=== PATIENT | male | born 1945 | race Caucasian/White ===

== ENCOUNTER → 2023-10-03 12:31 | Outpatient (REF) | payer MEDICARE, SELFPAY | LOC: RAD 12:31 | PROVIDERS: ATTENDING PHYSICIAN Surgery Vascular Surgery; FAMILY PHYSICIAN Internal Medicine | DX: I73.9 Peripheral vascular disease, unspecified (principal); I71.40 Abdominal aortic aneurysm, without rupture, unspecified | CPT/HCPCS: 76770; 93922; 93925 ==

== ENCOUNTER → 2023-12-12 12:56 | Outpatient (REF) | payer MEDICARE, SELFPAY ==
[2023-12-12 14:34] LABS: Glycohemoglobin (HgbA1c) 8.4 % (4.0-5.6)
[2023-12-12 14:43] LABS: ALT (SGPT) 20 U/L (0-50); AST (SGOT) 25 U/L (17-59); Albumin 4.6 g/dl (3.5-5.0); Alkaline Phosphatase 75 U/L (38-126); Blood Urea Nitrogen 19 mg/dl (9-20); Calcium 9.4 mg/dl (8.4-10.2); Carbon Dioxide 23 mmol/L (22-30); Chloride 100 mmol/L (98-107); Glucose 153 mg/dl (70-99); HDL Cholesterol 44 mg/dl; LDL Cholesterol, Calculated 69 mg/dl; Potassium 4.7 mmol/L (3.5-5.1); Sodium 137 mmol/L (135-145); Total Bilirubin 0.8 mg/dl (0.2-1.3); Total Cholesterol 141 mg/dl (50-199); Total Protein 7.5 g/dl (6.3-8.2); Triglyceride 144 mg/dl (10-149); Very Low Density Lipoprotein 28 mg/dl (0-30); eGFR 40.25
[2023-12-12 15:03] LABS: TSH 8.58 uIU/ml (0.47-4.68)
== END ==
LOC: REG 12:56
PROVIDERS: ATTENDING PHYSICIAN Nuclear Medicine Nuclear Cardiology; FAMILY PHYSICIAN Internal Medicine
DX: I48.0 Paroxysmal atrial fibrillation (principal); I25.5 Ischemic cardiomyopathy; Z95.1 Presence of aortocoronary bypass graft; I25.10 Atherosclerotic heart disease of native coronary artery without angina pectoris; I10 Essential (primary) hypertension; E03.9 Hypothyroidism, unspecified; E78.5 Hyperlipidemia, unspecified; R53.83 Other fatigue; E11.9 Type 2 diabetes mellitus without complications
CPT/HCPCS: 36415; 80053; 80061; 83036; 84443

== ENCOUNTER → 2024-02-06 15:40 | Outpatient (REF) | payer MEDICARE, SELFPAY ==
--- NOTE | 2024-02-06 17:32 | CARDSERVDEF ---
Echocardiogram with Definity completed after protocol screening completed. Allergies verified.
Patent IV site: ___RH__
IV site flushed with 0.9% NaCl pre and post administration.
Diluted bolus method utilized to enhance visualization of ventricular mckeon.
Total volume given: __2__ mL
Patient tolerated all procedures well without complications.
== END ==
LOC: RCS 15:40
PROVIDERS: ATTENDING PHYSICIAN Nuclear Medicine Nuclear Cardiology; FAMILY PHYSICIAN Internal Medicine
DX: I25.5 Ischemic cardiomyopathy (principal); Z95.1 Presence of aortocoronary bypass graft; Z79.899 Other long term (current) drug therapy; R06.09 Other forms of dyspnea
CPT/HCPCS: 71046; 93306; Q9957

== ENCOUNTER → 2024-06-11 13:07 | Outpatient (REF) | payer MEDICARE, SELFPAY ==
[2024-06-11 14:51] LABS: % Basophils 0.6 % (0-2); % Eosinophils 1.3 % (0-6); % Immature Granulocytes 0.4 % (0-0.5); % Lymphocytes 6.7 % (20.5-51.1); Absolute Basophils 0.1 10^3/uL (0-0.2); Absolute Eosinophils 0.1 10^3/uL (0-0.7); Absolute Lymphocytes 0.5 10^3/uL (1.2-3.4); Absolute Monocytes 0.6 10^3/uL (0.1-0.6); Absolute Neutrophils 6.4 10^3/uL (1.4-6.5); Hematocrit 33.1 % (39.0-52.0); Hemoglobin 10.1 g/dL (13.0-18.0); Mean Corp Hgb Conc. 30.5 g/dL (33.0-37.0); Mean Corpuscular Hgb 25.2 pg (27.0-31.0); Mean Corpuscular Volume 82.5 fL (80.0-94.0); Mean Platelet Volume 10.3 fL (7.4-10.4); Nucleated Red Blood Cells % 0 % (-); Platelet Count 282 10^3/uL (130-400); Red Blood Cell Count 4.01 10^6/uL (4.70-6.10); Red Cell Dist. Width 17.9 % (11.5-14.5); White Blood Cell Count 7.7 10^3/uL (4.8-10.8)
[2024-06-11 15:23] LABS: Blood Urea Nitrogen 13 mg/dl (9-20); Calcium 8.6 mg/dl (8.4-10.2); Carbon Dioxide 27 mmol/L (22-30); Chloride 102 mmol/L (98-107); Glucose 89 mg/dl (70-99); Potassium 4.2 mmol/L (3.5-5.1); Sodium 143 mmol/L (135-145); eGFR 37.35
[2024-06-11 15:49] LABS: TSH 1.84 uIU/ml (0.47-4.68)
[2024-06-12 08:38] LABS: Glycohemoglobin (HgbA1c) 7.7 % (4.0-5.6)
== END ==
LOC: REG 13:07
PROVIDERS: ATTENDING PHYSICIAN Internal Medicine
DX: I25.5 Ischemic cardiomyopathy (principal); E11.22 Type 2 diabetes mellitus with diabetic chronic kidney disease; E03.9 Hypothyroidism, unspecified; Z86.2 Personal history of diseases of the blood and blood-forming organs and certain disorders involving the immune mechanism
CPT/HCPCS: 36415; 80048; 83036; 84443; 85025

== ENCOUNTER 2024-07-04 18:43 | Inpatient (IN) | payer MEDICARE, SELFPAY ==
[2024-07-04] VITALS (10 sets, daily range): BP systolic 120–160; BP diastolic 39–65; BMI 27.4; BMI 27.2
--- NOTE | 2024-07-04 14:22 | ED.GENMED ---
ED Provider Triage
<Treasure Rollins BARK PEELER - Last Filed: 07/04/24 14:29>
-
Patient seen by provider in Triage?: Seen in Triage
Attestation: A medical screening examination has been initiated by a qualified medical provider. Based on the assessment performed at this time, it has been determined that an emergent medical condition may exist and the patient has been informed
that further medical evaluation and possible additional diagnostic testing may be needed.
HPI: 79-year-old male history of COPD, CHF, HTN, HLD presents from Dr. Cisse's office for shortness of breath. Also 'filling up with fluid'
Pulse ox in Triage 82%.
GENERAL: Alert appropriate
EYE: No visual abnormalities.
NECK: Trachea midline
ENT: No visible abnormalities.
LUNGS: Mildly labored breathing.
NEUROLOGICAL: Alert and oriented
SKIN: Skin intact. No visible changes.
MUSCULOSKELETAL: Bilateral ankle edema.
PSYCH: Normal and appropriate interaction.
This is a medical evaluation conducted in person to initiate diagnostic evaluation and provide initial therapeutics. Please see further documentation by the treating clinician.
History of Present Illness
<Treasure Rollins, BARK PEELER - Last Filed: 07/04/24 14:29>
General
Chief Complaint: Breathing Problem
Time Seen by Provider: 07/04/24 16:39
<Shakir Horowitz PA-C - Last Filed: 07/04/24 17:06>
General
Source: patient
Exam Limitations: none
History of Present Illness
History of Present Illness:
79-year-old male with history of CHF, A-fib on Eliquis and Lasix with history of CAD requiring CABG presents with increasing shortness of breath. In by family doctor today was noted to have low oxygen readings in office. He was sent here for
evaluation. He notes leg swelling. He does not check his weight routinely. He does note orthopnea. He denies any chest pain. There has been no fever. But does note loss.
Past History
<Treasure Rollins BARK PEELER - Last Filed: 07/04/24 14:29>
Past History
ED Past Medical History: CAD, CHF, HTN and NIDDM
ED Past Surgical History: Cardiac
Social History
Tobacco: Former smoker
Alcohol: Occasional
Drug: None
Personal: Single
Living: with family
Employment: Retired
Family History
Family History: Hypertension
Phy Exam
<Shakir Horowitz PA-C - Last Filed: 07/04/24 17:06>
Physical Exam
Physical Exam:
General: Well-developed male with a slight increased work of breathing
HEENT: Normocephalic atraumatic
Heart: Regular rate and rhythm
Lungs: Rales at the bases
Abdomen is soft nontender nondistended
Extremities: Pitting edema bilateral lower extremities
Skin is warm no rash
Scores
<Shakir Horowitz PA-C - Last Filed: 07/04/24 17:06>
Heart Failure Risk
Heart Failure Risk Score: Not Applicable
Course
<Treasure Rollins, BARK PEELER - Last Filed: 07/04/24 14:29>
Orders/Labs/Results
Orders:
Orders
07/04/24 14:26
Cardiac Monitoring- Treatment ONCE
07/04/24 14:27
Electrocardiogram (*1) Stat
Reason for Study: Other
Other Reason for Exam: pneumonia
EKG- Treatment ONCE
Ipratropium/Albuterol Sulfate [Duoneb] 3 ml INH R NOW STA
07/04/24 14:28
CR Chest Portable - 1 View Urgent
Comment:
Reason For Exam: SOB, hypoxia
Reason Study Needs to be Portable: Patient Unstable
07/04/24 14:29
O2 Therapy [RESP] Urgent
Nasal Cannula Liter Flow: 4 LPM
Titrate/Wean O2 to maintain O2 sat greater than (%): 93
07/04/24 14:50
Complete Blood Count/With Diff Urgent
Comprehensive Metabolic Panel Urgent
NT-proBNP Urgent
Troponin I Urgent
07/04/24 16:52
Furosemide [Lasix] 40 mg IV NOW STA
Abnormal Lab Results
07/04/24
14:50
RBC 3.85 L 10^6/uL
(4.70-6.10)
Hgb 9.4 L g/dL
(13.0-18.0)
Hct 31.3 L %
(39.0-52.0)
MCH 24.4 L pg
(27.0-31.0)
MCHC 30.0 L g/dL
(33.0-37.0)
RDW 18.6 H %
(11.5-14.5)
Absolute Neuts (auto) 6.7 H 10^3/uL
(1.4-6.5)
Absolute Lymphs (auto) 0.5 L 10^3/uL
(1.2-3.4)
Neutrophils % 84.0 H %
(42.2-75.2)
Lymphocytes % 6.6 L %
(20.5-51.1)
Creatinine 1.9 H mg/dL
(0.7-1.3)
Glucose 62 L mg/dl
(70-99)
Troponin I 0.049 H* ng/ml
07/04/24 14:50
07/04/24 14:50
Vital Signs
Initial and Last Documented VS:
Initial Vital Signs
Temp Pulse Resp BP Pulse Ox
98.4 F 70 18 120/50 82
07/04/24 14:24 07/04/24 14:24 07/04/24 14:24 07/04/24 14:24 07/04/24 14:24
Last Documented Vital Signs
Temp Pulse Resp BP Pulse Ox
98.4 F 70 18 120/50 82
07/04/24 14:24 07/04/24 14:24 07/04/24 14:24 07/04/24 14:24 07/04/24 14:24
<Shakir Horowitz PA-C - Last Filed: 07/04/24 17:06>
Orders/Labs/Results
Orders:
Orders
07/04/24 14:26
Cardiac Monitoring- Treatment ONCE
07/04/24 14:27
Electrocardiogram (*1) Stat
Reason for Study: Other
Other Reason for Exam: pneumonia
EKG- Treatment ONCE
Ipratropium/Albuterol Sulfate [Duoneb] 3 ml INH R NOW STA
07/04/24 14:28
CR Chest Portable - 1 View Urgent
Comment:
Reason For Exam: SOB, hypoxia
Reason Study Needs to be Portable: Patient Unstable
07/04/24 14:29
O2 Therapy [RESP] Urgent
Nasal Cannula Liter Flow: 4 LPM
Titrate/Wean O2 to maintain O2 sat greater than (%): 93
07/04/24 14:50
Complete Blood Count/With Diff Urgent
Comprehensive Metabolic Panel Urgent
NT-proBNP Urgent
Troponin I Urgent
07/04/24 16:52
Furosemide [Lasix] 40 mg IV NOW STA
Abnormal Lab Results
07/04/24
14:50
RBC 3.85 L 10^6/uL
(4.70-6.10)
Hgb 9.4 L g/dL
(13.0-18.0)
Hct 31.3 L %
(39.0-52.0)
MCH 24.4 L pg
(27.0-31.0)
MCHC 30.0 L g/dL
(33.0-37.0)
RDW 18.6 H %
(11.5-14.5)
Absolute Neuts (auto) 6.7 H 10^3/uL
(1.4-6.5)
Absolute Lymphs (auto) 0.5 L 10^3/uL
(1.2-3.4)
Neutrophils % 84.0 H %
(42.2-75.2)
Lymphocytes % 6.6 L %
(20.5-51.1)
Creatinine 1.9 H mg/dL
(0.7-1.3)
Glucose 62 L mg/dl
(70-99)
Troponin I 0.049 H* ng/ml
07/04/24 14:50
07/04/24 14:50
Vital Signs
Initial and Last Documented VS:
Initial Vital Signs
Temp Pulse Resp BP Pulse Ox
98.4 F 70 18 120/50 82
07/04/24 14:24 07/04/24 14:24 07/04/24 14:24 07/04/24 14:24 07/04/24 14:24
Last Documented Vital Signs
Temp Pulse Resp BP Pulse Ox
98.4 F 70 18 120/50 82
07/04/24 14:24 07/04/24 14:24 07/04/24 14:24 07/04/24 14:24 07/04/24 14:24
<Shakir Horowitz PA-C - Last Filed: 07/04/24 17:06>
MDM/Problems Addressed
Differential Diagnosis Includes:
Patient here with shortness of breath. Consider CHF flare versus pneumonia. Unlikely to be PE secondary to anticoagulated state
Patient currently on 2 L of oxygen he is typically not on oxygen. Patient had echocardiogram in January of this year which showed fraction of 30 to 35%. He appears volume overloaded. Chest x-ray demonstrates pulmonary edema with small pleural
effusion. BNP is elevated at 16,800.
Suspect CHF flare. 40 mg IV Lasix ordered will admit to hospital
<Shakir Horowitz PA-C - Last Filed: 07/04/24 17:06>
*Critical Care Note
Total Time (30-74mins, 75-104mins- exclusive of procedures): Not Applicable
ED Attending Note
<Treasure Rollins NP - Last Filed: 07/04/24 14:29>
-
Portions of this chart may have been created with voice recognition software.� Occasional wrong word or��sound alike� substitutions may have occurred due to the inherent limitations of voice recognition software.
Discharge Plan
Departure
Patient Disposition: Admit
Date of Disposition: 07/04/24
Time of Disposition: 17:06
Admit to: Telemetry
Presentation/result/management discussed w/ accepting MD/DO: Hospitalist
Discharge Problem:
CHF (congestive heart failure)
Prescriptions:
No Action
pantoprazole 40 MG tablet,delayed release (DR/EC)
40 mg PO DAILY Qty: 30 3RF
albuterol sulfate 1 PUFF HFA aerosol inhaler
2 puff inhalation R Q4HPRN PRN (Reason: SOB, wheezing) Qty: 1 3RF
Patient Comments:
many months ago
nitroglycerin 0.4 MG tablet, sublingual
0.4 mg sublingual [id number] PRN (Reason: chest pain)
atorvastatin 40 MG tablet
40 mg PO DAILY@1999
amiodarone [Pacerone] 200 MG tablet
100 mg PO DAILY@1999
furosemide 20 MG tablet
20 mg PO DAILY Qty: 30 0RF
isosorbide mononitrate 30 MG tablet extended release 24 hr
30 mg PO DAILY
glipizide 5 MG tablet
10 mg PO DAILY
levothyroxine 50 mcg Tablet
50 mcg PO DAILY
hydralazine 50 mg Tablet
100 mg PO BID Qty: 120 0RF
carvedilol [Coreg] 6.25 mg tablet
6.25 mg PO BID Qty: 60 0RF
amlodipine [Norvasc] 5 mg tablet
5 mg PO DAILY Qty: 30 0RF
Eliquis 5 mg tablet
5 mg PO BID Qty: 60 0RF
furosemide [Lasix] 40 mg tablet
40 mg PO DAILY Qty: 30 0RF
Referrals:
Donny Cisse MD [Family Provider] -
Interventions
Interventions:
*Risk Screen - Suicide Last Done: 07/04/24 14:24
*General Assessment Last Done: 07/04/24 15:13
*Neglect/Abuse Screening Last Done: 07/04/24 14:24
ED- Cardiac Assessment Last Done: 07/04/24 15:13
ED- Pulmonary Assessment Last Done: 07/04/24 15:13
Discharge Date and Time
Print Language: JAPANESE
[2024-07-04] MEDS: DUONEB 3 ML INH (14:50)
[2024-07-04 14:58] LABS: % Basophils 0.5 % (0-2); % Eosinophils 0.9 % (0-6); % Immature Granulocytes 0.5 % (0-0.5); % Lymphocytes 6.6 % (20.5-51.1); % Monocytes 7.5 % (1.7-9.3); Absolute Eosinophils 0.1 10^3/uL (0-0.7); Absolute Lymphocytes 0.5 10^3/uL (1.2-3.4); Absolute Monocytes 0.6 10^3/uL (0.1-0.6); Absolute Neutrophils 6.7 10^3/uL (1.4-6.5); Hematocrit 31.3 % (39.0-52.0); Hemoglobin 9.4 g/dL (13.0-18.0); Mean Corpuscular Hgb 24.4 pg (27.0-31.0); Mean Corpuscular Volume 81.3 fL (80.0-94.0); Mean Platelet Volume 10.1 fL (7.4-10.4); Nucleated Red Blood Cells % 0 % (-); Platelet Count 252 10^3/uL (130-400); Red Blood Cell Count 3.85 10^6/uL (4.70-6.10); Red Cell Dist. Width 18.6 % (11.5-14.5)
[2024-07-04 15:13] LABS: ALT (SGPT) 15 U/L (0-50); AST (SGOT) 21 U/L (17-59); Albumin 3.9 g/dl (3.5-5.0); Alkaline Phosphatase 70 U/L (38-126); Blood Urea Nitrogen 20 mg/dl (9-20); Calcium 8.7 mg/dl (8.4-10.2); Carbon Dioxide 26 mmol/L (22-30); Chloride 101 mmol/L (98-107); Glucose 62 mg/dl (70-99); Potassium 3.5 mmol/L (3.5-5.1); Sodium 141 mmol/L (135-145); Total Bilirubin 1.2 mg/dl (0.2-1.3); Total Protein 6.5 g/dl (6.3-8.2)
[2024-07-04 15:29] LABS: NT-proBNP 16800 pg/ml; Troponin I 0.049 ng/ml
--- NOTE | 2024-07-04 17:10 | HPS.HSE ---
Family Physician
-
Family Physician: Donny Cisse
Chief Complaint
-
Shortness of Breath
History of Present Illness
Patient is an 79 y/o male past medical history of CAD, CHF, A-Fib and CKD who presents with increased shortness of breath. Patient reports increased dyspnea on exertion over the past several days. He saw his PCP in the office today who referred him
to the emergency department due to low oxygen level in the office. In triage his pulse ox was documented as 82% on room air. Patient reports increased lower extremity edema. He does not weight himself on a regular basis. He denies chest pains or
palpitations.
Medical History
Past Medical History
Past Medical History: Reports Other
Additional Past Medical History:
Coronary Artery Disease s/p CABG
Chronic HFrEF
Abdominal Aortic Aneurysm s/p Endovascular Repair
Paroxysmal Atrial Fibrillation/Flutter
Essential Hypertension
Hyperlipidemia
Diabetes Mellitus, Type II
CKD Stage IIIB
COPD
Hypothyroidism
Past Surgical History: Reports Other
Additional Past Surgical History:
CABG x 2
AAA Repair
Social History
Tobacco: Former Smoker (Quit in 2017)
Living: Other (Currently living alone, but planning to move up with his daughter shortly)
Family History
Family History: Not pertinent
Allergies / Home Medications
Allergies reflects when Allergies were last updated in [employer].
Home Medications with original date entered in [employer]
Allergy/Medication List:
Allergies
Allergy/AdvReac Type Severity Reaction Status Date / Time
No Known Allergies Allergy Verified 07/04/24 14:27
Home Medications
albuterol sulfate 90 mcg/actuation aerosol inhaler 2 puff inhalation R Q4HPRN PRN SOB, wheezing ##1 11/07/16
pantoprazole 40 mg tablet,delayed release 40 mg PO DAILY ##30 11/07/16
nitroglycerin 0.4 mg sublingual tablet 0.4 mg sublingual [id number] PRN chest pain 03/07/17
atorvastatin 40 mg tablet 40 mg PO DAILY@1999 High Cholesterol 09/20/17
furosemide 20 mg tablet 20 mg PO DAILY ##30 09/28/17
isosorbide mononitrate 30 mg tablet,extended release 24 hr 30 mg PO DAILY Blood Pressure 05/07/19
levothyroxine 50 mcg tablet 50 mcg PO DAILY Thyroid 01/21/23
apixaban 5 mg tablet (Eliquis) 5 mg PO BID #60 tabs 01/27/23
carvedilol 6.25 mg tablet (Coreg) 6.25 mg PO BID #60 tabs 01/27/23
amiodarone 100 mg tablet 100 mg PO DAILY@199907/04/24
amlodipine 5 mg tablet (Norvasc) 5 mg PO BID 07/04/24
furosemide 20 mg tablet 20 mg PO Q48H@1600 07/04/24
glipizide 10 mg tablet 10 mg PO BID 07/04/24
hydralazine 50 mg tablet 50 mg PO BID 07/04/24
Review of Systems
-
A 12 point ROS was completed and negative except as noted: Yes
Constitutional: Denies Fever or Chills
Respiratory: Reports Trouble Breathing
Cardiac: Denies Chest Pain or Palpitations
Physical Exam
Vital Signs
Vital Signs
Temp Pulse Resp BP Pulse Ox
98.4 F 70 18 120/50 82
07/04/24 14:24 07/04/24 14:24 07/04/24 14:24 07/04/24 14:24 07/04/24 14:24
Physical Exam
General: Comfortable and Conversant
HEENT: Anicteric, Moist mucous membranes and Oxygen (Nasal Cannula)
Respiratory: Rales (Diffuse)
Cardiac: S1/S2, Regular Rhythm and Murmur
GI: Soft and Non Tender
Rectal: Deferred by Provider
Musculoskeletal: No Clubbing, No Cyanosis and Other (+3 pitting edema bilateral lower extremities)
Skin: Warm and Dry
Neuro: Awake, Alert, Oriented and Nonfocal/grossly intact
Psych: Calm
Laboratory Results
-
07/04/24 14:50
07/04/24 14:50
Laboratory Results
Total Bilirubin 1.2 mg/dl (0.2-1.3) 07/04/24 14:50
AST 21 U/L (17-59) 07/04/24 14:50
ALT 15 U/L (0-50) 07/04/24 14:50
Alkaline Phosphatase 70 U/L (38-126) 07/04/24 14:50
Troponin I 0.049 ng/ml H* 07/04/24 14:50
Data Reviewed
-
Diagnostic Radiology: Report Reviewed by me
Lab Data: Labs Reviewed by me
Impression/Plan
-
Acute Hypoxic Respiratory Insufficiency secondary to Acute Heart Failure
-Continue supplemental oxygen
-Wean oxygen as able
Acute on Chronic HFrEF
-Echo January 2024: EF 30-35%
-Consult Cardiology
-Continue Lasix 40mg IV Daily
-Monitor Is&Os ad Daily Weights
Elevated Troponin, suspect non-ischemic myocardial injury insetting of hypoxia and heart failure
-Continue to trend troponin
Coronary Artery Disease s/p CABG
-Continue atorvastatin
-Continue isosorbide mononitrate
Paroxysmal Atrial Fibrillation/Flutter
-Continue amiodarone for rhythm control
-Continue Coreg for rate control
-Continue Eliquis for anticoagulation
Essential Hypertension
-Continue Coreg and Hydralazine with hold parameters
Diabetes Mellitus, Type II
-Continue Glipizide
-Monitor sugars and continue coverage
CKD Stage IIIB
-Monitor creatinine closely on diuretics
COPD, no acute exacerbation
-Continue albuterol PRN
Hypothyroidism
-Continue levothyroxine
GERD
-Continue pantoprazole
Hx Abdominal Aortic Aneurysm s/p Endovascular Repair
DVT proph: Eliquis
Code Status: DNR
[2024-07-04] MEDS: LASIX 40 MG IV (17:34)
[2024-07-04 21:28] LABS: Troponin I 0.122 ng/ml
[2024-07-04] MEDS: NORVASC 5 MG PO (21:30)
[2024-07-04] MEDS: PACERONE 100 MG PO (21:31)
[2024-07-04] MEDS: ELIQUIS 2.5 MG PO (21:31)
[2024-07-04] MEDS: LIPITOR 40 MG PO (21:31)
[2024-07-04] MEDS: APRESOLINE 50 MG PO (21:31)
[2024-07-04] MEDS: COREG PO (21:32)
[2024-07-04 21:41] LABS: Glucose - Point of Care 50 mg/dl (70-99)
[2024-07-04] MEDS: GLUCOTROL PO (21:47)
[2024-07-04 22:09] LABS: Glucose - Point of Care 87 mg/dl (70-99)
[2024-07-05] VITALS (7 sets, daily range): BP systolic 136–151; BP diastolic 57–63; PULSE 61–63; O2SAT 95–96; BMI 27.0
[2024-07-05 02:50] LABS: Troponin I 0.134 ng/ml
[2024-07-05 03:30] LABS: Glucose - Point of Care 49 mg/dl (70-99)
[2024-07-05 04:30] LABS: Glucose - Point of Care 94 mg/dl (70-99)
[2024-07-05] MEDS: SYNTHROID 50 MCG PO (05:17)
[2024-07-05 07:13] LABS: Glucose - Point of Care 59 mg/dl (70-99)
[2024-07-05 07:54] LABS: Glucose - Point of Care 82 mg/dl (70-99)
[2024-07-05] MEDS: NOVOLOG FLEXPEN-LOW RESISTANCE SC ×2 (08:00→17:15)
[2024-07-05 08:13] LABS: Hematocrit 33.7 % (39.0-52.0); Hemoglobin 9.8 g/dL (13.0-18.0); Mean Corp Hgb Conc. 29.1 g/dL (33.0-37.0); Mean Corpuscular Hgb 23.8 pg (27.0-31.0); Mean Corpuscular Volume 81.8 fL (80.0-94.0); Mean Platelet Volume 9.5 fL (7.4-10.4); Platelet Count 226 10^3/uL (130-400); Red Blood Cell Count 4.12 10^6/uL (4.70-6.10); Red Cell Dist. Width 18.6 % (11.5-14.5); White Blood Cell Count 8.6 10^3/uL (4.8-10.8)
[2024-07-05] MEDS: LASIX 40 MG IV ×2 (08:28→16:35)
[2024-07-05] MEDS: IMDUR (EXTENDED RELEASE) 30 MG PO (08:29)
[2024-07-05] MEDS: COREG 6.25 MG PO ×2 (08:29→21:23)
[2024-07-05] MEDS: GLUCOTROL 10 MG PO ×2 (08:29→18:02)
[2024-07-05] MEDS: PROTONIX 40 MG PO (08:30)
[2024-07-05] MEDS: ELIQUIS 2.5 MG PO ×2 (08:30→21:24)
[2024-07-05] MEDS: APRESOLINE 50 MG PO ×2 (08:30→21:24)
[2024-07-05] MEDS: NORVASC 5 MG PO ×2 (08:30→21:24)
[2024-07-05 08:46] LABS: Troponin I 0.102 ng/ml
[2024-07-05 08:48] LABS: Blood Urea Nitrogen 16 mg/dl (9-20); Calcium 8.5 mg/dl (8.4-10.2); Carbon Dioxide 31 mmol/L (22-30); Chloride 100 mmol/L (98-107); Estimated Creatinine Clearance 36 ml/min; Glucose 74 mg/dl (70-99); Magnesium 2.2 mg/dl (1.6-2.3); Potassium 3.2 mmol/L (3.5-5.1); Sodium 142 mmol/L (135-145)
--- NOTE | 2024-07-05 09:16 | CON.CAR ---
Consultation
Consultation Request
Date/Time Consultation Requested: 07/05/24
Date/Time Consultation Performed: 07/05/24
Requesting Provider: Dr. Gardner
Performing Provider: Dr. Cortés
Reason for Consultation: CHF
Medical History
-
Chief Complaint: SOB/CHF Decompensation
History of Present Illness:
I had the pleasure to meet your patient, her reassurance in room 407-2. Patient is known to [facility] and follows with my colleague Dr. Gill. He has a past medical history of ischemic cardiomyopathy with chronic systolic heart failure
and an ejection fraction of 30-35% on echocardiogram January 2024. He also has mild aortic stenosis with mean transaortic gradient 10 mmHg with no significant mitral or tricuspid insufficiency and no evidence of pulmonary hypertension. He underwent
bypass surgery in 2016 after an inferior wall MA. Optimal medical therapy has been limited by renal insufficiency and patient preference. Apparently he has declined ICD therapy. He also has a history of an infrarenal abdominal aortic aneurysm
without rupture status post EVAR with type II endoleak 02/2017 and peripheral arterial disease with bilateral SFA disease/claudication followed by Dr. David Wilson. His most recent aortic abdominal surveillance ultrasound dated 10/03/2023 showed patent
aortobiiliac stent graft with residual aneurysm sac stable/slightly improved measurement 6.3 cm (AP) x6.1 cm (transverse) with no evidence for endoleak. Prior study measured 6.4 x 6.5 cm. He also has a history of paroxysmal atrial fibrillation
maintaining sinus rhythm on amiodarone and anticoagulated with Eliquis. He reports increasing shortness of breath over the last several weeks since . He had been living with his brother and his who are recently transition to
[facility]. He reports in the last couple weeks having some salt rich foods including soups and frozen meals and has noted increased lower extremity edema and weight gain. He denies chest pain or pressure. He
denies syncope or near syncope. He has been compliant with his medications including Lasix which he is taking 40 mg daily and alternating days taking additional 20 mg in the evening. His daughter who lives in [place] was planning to move him
into her house the day of his admission.
PMH:
CAD
s/p CABG PICHARDO to LAD, saphenous vein graft to first diagonal, hx Inferior MA 01/09/17
Ischemic cardiomyopathy most recent EF 37% by echo 11/22/22
Chronic HFrEF
Paroxysmal atrial fibrillation/flutter
Chronic warfarin OAC managed by [facility]
Chronic amiodarone therapy
h/o transverse colon mass resection with negative pathology 09/27/17
s/p EVAR with type II endoleak 02/2017
CKD, stage III
COPD with long history of tobacco abuse
Chronic left bundle-branch block
Hypertension
Hyperlipidemia
PAD
Gait dysfunction
Past Medical History
Past Medical History: Other (in HPI)
Past Surgical History: Cardiac (CABG 12/2016, EVAR 02/2017, Cardioversion 2016, cardiac catheterization 2016) and Other
Social History
Tobacco: Former Smoker
Alcohol: None
Drug: None
Personal: Single
Living: Alone
Employment: Retired
Family History
Family History: CAD, Cancer, Diabetes and Other (CVA)
Allergies / Home Medications
Allergy/AdvReac Type Severity Reaction Status Date / Time
No Known Allergies Allergy Verified 07/04/24 14:27
�Medication �Instructions �Recorded �Confirmed �Type
albuterol sulfate 90 mcg/actuation 2 puff inhalation R Q4HPRN PRN 11/07/16 07/04/24 Rx
aerosol inhaler SOB, wheezing ##1
pantoprazole 40 mg tablet,delayed 40 mg PO DAILY ##30 11/07/16 07/04/24 Rx
release
nitroglycerin 0.4 mg sublingual 0.4 mg sublingual [id number] PRN 03/07/17 07/04/24 History
tablet chest pain
atorvastatin 40 mg tablet 40 mg PO DAILY@2000 High 09/20/17 07/04/24 History
Cholesterol
furosemide 20 mg tablet 20 mg PO DAILY ##30 09/28/17 07/04/24 Rx
isosorbide mononitrate 30 mg 30 mg PO DAILY Blood Pressure 05/07/19 07/04/24 History
tablet,extended release 24 hr
levothyroxine 50 mcg tablet 50 mcg PO DAILY Thyroid 01/21/23 07/04/24 History
apixaban 5 mg tablet (Eliquis) 5 mg PO BID #60 tabs 01/27/23 07/04/24 Rx
carvedilol 6.25 mg tablet (Coreg) 6.25 mg PO BID #60 tabs 01/27/23 07/04/24 Rx
amiodarone 100 mg tablet 100 mg PO DAILY@199907/04/24 07/04/24 History
amlodipine 5 mg tablet (Norvasc) 5 mg PO BID 07/04/24 07/04/24 History
furosemide 20 mg tablet 20 mg PO Q48H@1600 07/04/24 07/04/24 History
glipizide 10 mg tablet 10 mg PO BID 07/04/24 07/04/24 History
hydralazine 50 mg tablet 50 mg PO BID 07/04/24 07/04/24 History
Review of Systems
-
History Source: Patient
All other systems: Negative unless noted
Constitutional: Weight Gain and Fatigue
EENT: No Symptoms
Respiratory: Trouble Breathing
Cardiac: No Symptoms
Abdomen/GI: No Symptoms
: No Symptoms
Musculoskeletal: Muscle Pain, Muscle Stiffness and Edema
Skin: No Symptoms
Neurological: No Symptoms
Hematologic/Lymphatic: No Symptoms
Physical Exam
Vital Signs
Temp Pulse Resp BP Pulse Ox
97.4 F 64 22 151/64 98
07/05/24 07:30 07/05/24 08:29 07/05/24 07:30 07/05/24 08:29 07/05/24 07:30
Lab Results
07/05/24 08:04
07/05/24 08:04
Troponin I 0.102 ng/ml H* 07/05/24 08:04
Nho-G-Nxzmstugigw Pept 45163 pg/ml 07/04/24 14:50
Physical Exam
General: Well Developed, Well Nourished and Other (Nasal cannula O2 2 L/min)
HEENT: Normocephalic, Anicteric and Moist Mucous Membranes
Respiratory: Other (Bronchovesicular breath sounds with bilateral crackles and end expiratory wheeze)
Cardiac: S1/S2, Regular Rhythm, Peripheral Edema and JVD; Negative Murmur or Rub
GI: Soft, Non Tender, Non Distended and Normal Bowel Sounds
Skin: Negative Rash
Neuro: AO x 3 and Nonfocal/Grossly Intact
Psych: Calm
Impression / Plan
-
PCP: Dr. Cisse
Cardiology: Dr. Gill
Impression:
Heart failure with reduced ejection fraction decompensation
CAD
s/p CABG PICHARDO to LAD, saphenous vein graft to first diagonal, hx Inferior MA 01/09/17
Ischemic cardiomyopathy most recent EF 37% by echo 11/22/22
Chronic HFrEF
Paroxysmal atrial fibrillation/flutter
Chronic warfarin OAC managed by [facility]
Chronic amiodarone therapy
s/p EVAR with type II endoleak 02/2017
CKD, stage III
COPD with long history of tobacco abuse
Chronic left bundle-branch block
Hypertension
Hyperlipidemia
PAD
Echo Aug 2017:�Dilated LV with EF 20-25% global hypokinesis, with mild MR/TR
Echo Feb 2017: Mildly dilated LV, EF 30-35%, inferior and inferolateral akinesis with global hypokinesis, mild LVH, Mild MR/TR, PASP 42-47 mmHg
Echo 11/22/22: EF 37%, global hypokinesis with akinetic inferoseptal segment, septal hypertrophy, no significant valvular disease
Echocardiogram 02/06/2024: LV ejection fraction estimated 30 to 35% with global hypokinesis and akinesis of the inferoseptal mckeon. Mild aortic stenosis with mean gradient 10 mmHg.
Cardiac cath October 2016: RA 12, PA 52/20, Wedge 24. Dilated LV, EF 15-20%, global hypokinesis, calcified akinetic inferobasal wall, 70% ostial left main, 80% distal left main, 85% first diagonal stenosis, proximal circumflex 80% OM1 small, 90%, 100%
mid RCA occlusion
Plan:
Acute hypoxic respiratory insufficiency secondary to exacerbation of chronic systolic heart failure with reduced ejection fraction
-Chest x-ray and proBNP consistent with heart failure decompensation. proBNP 16,800
-Exacerbation likely related to salt indiscretion
-IV Lasix, increase to 40 mg IV twice daily
-Monitor renal function with diuresis. Keep K greater than 4, mag greater than 2
-If renal function allows we will try to optimize medical therapy: Consider addition of JELENA/ARB or possibly Entresto. Have also asked case management to look into cost of SGLT2 inhibitor.
-Repeat 2D echocardiogram on Sunday
-Patient has previously declined ICD therapies
History of paroxysmal atrial fibrillation currently in sinus rhythm with known left bundle branch block
-PVCs/ventricular bigeminy on telemetry
-Continue to monitor on telemetry
-Continue amiodarone, carvedilol
-Check TSH
-Continue Eliquis anticoagulation.
Abnormal cardiac troponin, flat without chest pain or pressure.
-Likely represents nonischemic myocardial injury in the setting of heart failure/hypoxemic respiratory insufficiency
Chronic renal sufficiency�creatinine appears at baseline. Monitor with diuresis
History of AAA status post EVAR and PAD�stable
History of COPD with prior tobacco dependence�noted
Suspect sleep apnea, unclear if he has ever been tested. Could consider as an outpatient
History of hypothyroidism on levothyroxine�check TSH
Type 2 diabetes mellitus, defer to medicine. Goal normoglycemia.
Case management and hospitalist are in contact with family regarding prehospital plan to move him to [place] with his daughter
Data Reviewed
-
EKG: Report Reviewed by me
Radiology: Report Reviewed by me
Labs: Labs Reviewed by me
Old Records: Reviewed
--- NOTE | 2024-07-05 11:30 | CM ---
Addendum entered by MAGUI Castro 07/05/24 14:33:
Spoke to attending and dance choreographer. Discharge probably sunday. Updated dgtr. she is off sunday but may be able to come to on Sunday. Gave dgtr phone number for floor and CM to call to get update sunday afternoon on plan.
DGTR said patient only has medicare A & B & D. He does not have a medigap policy.
CM called his pharmacy to get [employer]are D plan ID [id number]. IT is a silverscript/aetna plan. silver script phone is [phone].
Per local [facility] he also has PACE.
Original Note:
Met with patient who asked CM to call his dgtr, Joleen who is POA. Cm spoke to Joleen. She reports patient lives with her cousin. Last year he was with his brother and his . Joleen states brother and his live are in inpatient care at [facility]. He
lives in the 2 level home with 3 steps in.
He uses rolling walker to assess bathroom with walk in shower with seat and rails. He uses w/c to get around home. Joleen has been coming from her home in [place] to take him to doctors and shopping. She was all set up to have him move in with
her yesterday and then he came to .
PCP is Dr. Donny Cisse
Pharmacy: [facility]
Joleen will take him to her home as planned but need PT eval to see if he is at his baseline. Discussed plan with attending.
He has used [facility] home care in past.
PLAN: discharge home with dgtr.
--- NOTE | 2024-07-05 11:54 | W.PN.HOSP.TC ---
Today's Communication/Plan
-
increase lasix
echo Sunday
wean O2
apprec cards
PT/OT
Assessment / Plan
Assessment / Plan
pt is an 79 year old male
Acute Hypoxic Respiratory Insufficiency secondary to Acute exacerbation of chronic Heart Failure with reduced EF (last echo 01/2024 with EF 30-35%)--cont diuresis, daily weights, I/Os--apprec cards--repeat ECHO--lasix IV BID-Continue supplemental
oxygen-Wean oxygen as able
Elevated Troponin, suspect non-ischemic myocardial injury insetting of hypoxia and heart failure--noted
Coronary Artery Disease s/p CABG--Continue atorvastatin--Continue isosorbide mononitrate
Paroxysmal Atrial Fibrillation/Flutter--Continue amiodarone for rhythm control-Continue Coreg for rate control-Continue Eliquis for anticoagulation
Essential Hypertension-Continue Coreg and Hydralazine with hold parameters
Diabetes Mellitus, Type II-Continue Glipizide--accuchecks SSI
CKD Stage IIIB--Monitor creatinine closely on diuretics
COPD, no acute exacerbation--Continue albuterol PRN
Hypothyroidism--Continue levothyroxine--check TSH
GERD--Continue pantoprazole
Hx Abdominal Aortic Aneurysm s/p Endovascular Repair
DVT proph: Eliquis
Code Status: DNR
Anticipated Discharge: > 48 hours
Subjective/Interval History
-
Date of Service: July 05, 2024
pt SOB still
Objective Data
-
Labs:
Laboratory Results
07/05/24
08:04
WBC 8.6
Hgb 9.8 L
Hct 33.7 L
Plt Count 226
Sodium 142
Potassium 3.2 L
Chloride 100
Carbon Dioxide 31 H
BUN 16
Creatinine 1.7 H
Glucose 74
Calcium 8.5
Vital Signs:
max temp for 24 hours
07/04/24
14:24
Temp 98.4 F
Vital Signs
Temp Pulse Resp BP Pulse Ox
97.4 F 64 22 151/64 98
07/05/24 07:30 07/05/24 08:29 07/05/24 07:30 07/05/24 08:29 07/05/24 07:30
I&O
07/04/24 07/05/24 07/06/24
06:59 06:59 06:59
Intake Total 720 / 720
Output Total 1350 / 1350
Balance -630 / -630
Review of Systems
-
All other systems: Reviewed and negative
Physical Exam
-
General: Well Developed, Well Nourished and No Apparent Distress
HEENT: Normocephalic, Atraumatic and Oxygen (labored breathing, dyssynchronous breathing)
Cardiac: Regular Rhythm and S1/S2; Negative Murmur
GI: Soft, Nontender, Nondistended and Normal Bowel Sounds
Musculoskeletal: No Clubbing, No Cyanosis and No Edema
Neuro: Awake and Alert
Psych: Calm
--- NOTE | 2024-07-05 12:50 | W.PN.UPDATE ---
Update Note
Progress Note Update
This note serves as an addendum to the H&P by supervisor tunnel heading JUSTIN Tatiana PHIPPS
HPI
79M HX CAD, CHF, A-Fib and CKD seen at ER:
- increased shortness of breath on exertion over the past several days.
- seen at PCP in the office today who referred him to the emergency department due to low POx
- In triage his pulse ox was documented as 82% on room air.
- reports increased lower extremity edema.
- does not weight himself on a regular basis.
ROS
denies chest pains or palpitations.
Vital Signs
Temp Pulse Resp BP Pulse Ox
98.2 F 70 11 180/74 94
07/04/24 14:30 07/04/24 18:30 07/04/24 18:30 07/04/24 17:00 07/04/24 17:00
PE
General: Comfortable
HEENT: Moist mucous membranes and wearing NC O2
Respiratory: diffuse rales
Cardiac: S1/S2, Regular Rhythm and Murmur
GI: Soft and Non Tender
Rectal: Deferred by Provider
Musculoskeletal: +3 pitting edema bilateral Júnior
Skin: Warm and Dry
Neuro: Awake, Alert, Oriented and Nonfocal/grossly intact
Psych: Calm
Data
Abnormal Lab Results
07/04/24
14:38
RBC 2.42 L
Hgb 7.6 L
Hct 24.6 L
MCV 101.7 H
MCH 31.4 H
MCHC 30.9 L
RDW 28.0 H
Abs Immat Gran (auto) 0.2 H
Absolute Lymphs (auto) 0.7 L
Absolute Monos (auto) 1.1 H
Immature Gran % 1.8 H
Neutrophils % 76.7 H
Lymphocytes % 7.8 L
Monocytes % 12.9 H
Glucose 65 L
Alkaline Phosphatase 193 H
Troponin I 0.035 H*
Total Protein 5.9 L
ASSESSMENT & PLAN
Acute Hypoxic RI secondary to Acute HF
- supplemental O2 to keep POx > 93
Acute on Chronic HFrEF : ALLAN January 2024: EF 30-35%
- cont. Lasix 40mg IV Daily
- trend Is&Os ad Daily Weights
- DCA card consulted
Elevated Troponin
Suspect NIMI
- trend troponin
CAD s/p CABG
- cont. atorvastatin
- cont isosorbide mononitrate
Paroxysmal AF/ A Fluter
- cont. ADVERTISING AGENCY MANAGER amiodarone
- cont ADVERTISING AGENCY MANAGER Coreg for rate control
- cont. Eliquis
Essential HTN
- cont ADVERTISING AGENCY MANAGER Coreg and Hydralazine with hold parameters
DMT2
- cont Glipizide
- add ISS low
CKD 3b
- trend Cr on diuretics
COPD, no acute exacerbation
- cont. albuterol PRN
Hypothyroidism
- on levothyroxine
Hx Abdominal Aortic Aneurysm s/p Endovascular Repair
DVT proph: Eliquis
Code Status: DNR
IP TLM
Dictated By: Sarwat Au MD
Dictated Date & Time: 07/04/241849
Co-Signer:
Co-Sign Date & Time:
Signed By: Sarwat Au MD
Signed Date & Time: 07/04/241851
<<Signature on File>>
Dictation Date/Time: 07/04/241849
Shellfish Processing Laborer Date/Time: 07/04/241849
Transcribed By: CORNELL
cc:
[2024-07-05 12:58] LABS: Glucose - Point of Care 196 mg/dl (70-99)
--- NOTE | 2024-07-05 13:23 | GLUCOSE ---
Pt's 0710 glucose was 59. Pt given juice , recheck Bs was 82.
[2024-07-05] MEDS: KCL 40 MEQ PO (13:29)
[2024-07-05] MEDS: NOVOLOG FLEXPEN-LOW RESISTANCE 1 UNITS SC (13:49)
--- NOTE | 2024-07-05 14:54 | CM ---
Called [employer] for prices of
Farxiga in 2023 cost for 30 or 90 days is $4.50
Jardiance in 2023 cost for 30 or 90 days is $11.20
IN 2024
Farxiga 30 day $587.41 90 day $1,761.22
Jardiance 30 day $616.49 90 day $1,848.47
TT sent to attending and cardiology with costs to patient.
[2024-07-05 17:01] LABS: Glucose - Point of Care 133 mg/dl (70-99)
[2024-07-05] MEDS: PACERONE 100 MG PO (21:23)
[2024-07-05] MEDS: LIPITOR 40 MG PO (21:24)
[2024-07-05 21:51] LABS: Glucose - Point of Care 211 mg/dl (70-99)
[2024-07-06 03:13] VITALS: BP 143/68
[2024-07-06 06:00] VITALS: BMI 26.7
[2024-07-06] MEDS: SYNTHROID 50 MCG PO (06:10)
[2024-07-06 06:56] LABS: Hematocrit 31.5 % (39.0-52.0); Hemoglobin 9.2 g/dL (13.0-18.0); Mean Corp Hgb Conc. 29.2 g/dL (33.0-37.0); Mean Corpuscular Hgb 24.1 pg (27.0-31.0); Mean Corpuscular Volume 82.7 fL (80.0-94.0); Mean Platelet Volume 10.3 fL (7.4-10.4); Platelet Count 233 10^3/uL (130-400); Red Blood Cell Count 3.81 10^6/uL (4.70-6.10); Red Cell Dist. Width 18.4 % (11.5-14.5); White Blood Cell Count 8.2 10^3/uL (4.8-10.8)
[2024-07-06 07:10] LABS: Glucose - Point of Care 152 mg/dl (70-99)
[2024-07-06 07:33] LABS: Blood Urea Nitrogen 15 mg/dl (9-20); Calcium 8.3 mg/dl (8.4-10.2); Carbon Dioxide 34 mmol/L (22-30); Chloride 98 mmol/L (98-107); Estimated Creatinine Clearance 34 ml/min; Glucose 150 mg/dl (70-99); Magnesium 2.1 mg/dl (1.6-2.3); Potassium 3.5 mmol/L (3.5-5.1); Sodium 140 mmol/L (135-145); eGFR 37.35
[2024-07-06 07:55] VITALS: BP 148/68
[2024-07-06 08:00] LABS: TSH Reflex To Free T4 0.09 uIU/ml (0.47-4.68)
[2024-07-06 08:29] LABS: Free T4 3.52 ng/dl (0.78-2.19)
[2024-07-06] MEDS: COREG 6.25 MG PO ×2 (09:56→20:49)
[2024-07-06] MEDS: APRESOLINE 50 MG PO ×2 (09:56→20:48)
[2024-07-06] MEDS: GLUCOTROL 10 MG PO ×2 (09:56→17:15)
[2024-07-06] MEDS: PROTONIX 40 MG PO (09:56)
[2024-07-06] MEDS: NORVASC 5 MG PO ×2 (09:56→20:48)
[2024-07-06] MEDS: ELIQUIS 2.5 MG PO ×2 (09:56→20:48)
[2024-07-06] MEDS: IMDUR (EXTENDED RELEASE) 30 MG PO (09:57)
[2024-07-06] MEDS: LASIX 40 MG IV ×2 (09:57→17:16)
[2024-07-06] MEDS: NOVOLOG FLEXPEN-LOW RESISTANCE 1 UNITS SC ×2 (10:05→13:09)
--- NOTE | 2024-07-06 10:40 | W.PN.CARDCBS ---
Today's Communication / Plan
-
Continue IV Lasix
Wean O2 as able
Impression / Plan
-
PCP: Dr. Cisse
Cardiology: Dr. Gill
Impression:
Heart failure with reduced ejection fraction decompensation
CAD
s/p CABG PICHARDO to LAD, saphenous vein graft to first diagonal, hx Inferior IA 01/09/17
Ischemic cardiomyopathy most recent EF 37% by echo 11/22/22
Chronic HFrEF
Paroxysmal atrial fibrillation/flutter
Chronic warfarin OAC managed by [facility]
Chronic amiodarone therapy
s/p EVAR with type II endoleak 02/2017
CKD, stage III
COPD with long history of tobacco abuse
Chronic left bundle-branch block
Hypertension
Hyperlipidemia
PAD
Echo Aug 2017:�Dilated LV with EF 20-25% global hypokinesis, with mild MR/TR
Echo Feb 2017: Mildly dilated LV, EF 30-35%, inferior and inferolateral akinesis with global hypokinesis, mild LVH, Mild MR/TR, PASP 42-47 mmHg
Echo 11/22/22: EF 37%, global hypokinesis with akinetic inferoseptal segment, septal hypertrophy, no significant valvular disease
Echocardiogram 02/06/2024: LV ejection fraction estimated 30 to 35% with global hypokinesis and akinesis of the inferoseptal mckeon. Mild aortic stenosis with mean gradient 10 mmHg.
Cardiac cath October 2016: RA 12, PA 52/20, Wedge 24. Dilated LV, EF 15-20%, global hypokinesis, calcified akinetic inferobasal wall, 70% ostial left main, 80% distal left main, 85% first diagonal stenosis, proximal circumflex 80% OM1 small, 90%, 100%
mid RCA occlusion
Plan:
Acute hypoxic respiratory insufficiency secondary to exacerbation of chronic systolic heart failure with reduced ejection fraction
-Chest x-ray and proBNP consistent with heart failure decompensation. proBNP 16,800
-Exacerbation likely related to salt indiscretion
-IV Lasix, increase to 40 mg IV twice daily
-Monitor renal function with diuresis. Keep K greater than 4, mag greater than 2
-If renal function allows we will try to optimize medical therapy: Consider addition of JELENA/ARB or possibly Entresto. Case management to look into cost of SGLT2 inhibitor.
-Repeat 2D echocardiogram on Sunday
-Patient has previously declined ICD therapies
History of paroxysmal atrial fibrillation currently in sinus rhythm with known left bundle branch block
-PVCs on telemetry
-Continue to monitor on telemetry
-Continue amiodarone, carvedilol
-TSH is low, may need to adjust Synthroid
-Continue Eliquis anticoagulation
Abnormal cardiac troponin
-Trend is relatively flat
-Not reporting chest pain or pressure
-Likely represents nonischemic myocardial injury in the setting of heart failure/hypoxemic respiratory insufficiency
Case management and hospitalist are in contact with family regarding prehospital plan to move him to [place] with his daughter
Progress Note - Tire Repairer
Subjective
Date of Service: July 06, 2024
No acute overnight events. Patient's resting comfortably, not experiencing any chest discomfort or shortness of breath. Still requiring supplemental oxygen.
Objective
Labs:
07/06/24 06:27
07/06/24 06:
Labs
Hgb 9.2 g/dL (13.0-18.0) L 07/06/24 06:27
Hct 31.5 % (39.0-52.0) L 07/06/24 06:27
Plt Count 233 10^3/uL (130-400) 07/06/24 06:27
Sodium 140 mmol/L (135-145) 07/06/24 06:27
Potassium 3.5 mmol/L (3.5-5.1) 07/06/24 06:27
BUN 15 mg/dl (9-20) 07/06/24 06:27
Creatinine 1.8 mg/dL (0.7-1.3) H 12/08/24 06:27
Glucose 150 mg/dl (70-99) H 07/06/24 06:27
Troponins
07/04/24 07/04/24 07/05/24
14:50 20:49 02:17
Troponin I 0.049 H* 0.122 H* D 0.134 H*
07/05/24
08:04
Troponin I 0.102 H*
Vital Signs and I&O:
Vital Signs
Temp Pulse Resp BP Pulse Ox
97.8 F 61 20 148/68 97
07/06/24 07:55 07/06/24 07:55 07/06/24 07:55 07/06/24 07:55 07/06/24 07:55
Vital Signs
Temp Pulse Resp BP Pulse Ox
97.8 F 61 20 148/68 97
07/06/24 07:55 07/06/24 07:55 07/06/24 07:55 07/06/24 07:55 07/06/24 07:55
Intake & Output
07/04/24 07/05/24 07/06/24 07/07/24
06:59 06:59 06:59 06:59
Intake Total 720 / 720 900 / 900
Output Total 1350 / 1350 1675 / 1675
Balance -630 / -630 -775 / -775
Physical Exam
Physical Exam
Gen: NAD, AA
HEENT: NC/AT, sclera anicteric
Neck: Difficult to assess JVD
CV: RRR, NL s1/s2
Lungs: No increased WOB on 2L NC
Abd: S/ND
Ext: Trace LE edema
Skin: Warm, dry
Neuro: Non-focal
[2024-07-06 11:00] VITALS: BP 151/65
[2024-07-06 12:17] LABS: Glucose - Point of Care 174 mg/dl (70-99)
--- NOTE | 2024-07-06 13:00 | W.PN.HOSP.TC ---
Addendum entered and electronically signed by Marta Gardner MD 07/06/24 13:04:
TSH 0.09L
free T4 3.52H
will decrease synthroid to 25mcg
Original Note:
Today's Communication/Plan
-
cont diuresis
ECHO Mon
Assessment / Plan
Assessment / Plan
pt is an 79 year old male
Acute Hypoxic Respiratory Insufficiency secondary to Acute exacerbation of chronic Heart Failure with reduced EF (last echo 01/2024 with EF 30-35%)--cont diuresis, daily weights, I/Os--apprec cards--repeat ECHO Sunday--lasix IV BID-Continue
supplemental oxygen-Wean oxygen as able
Elevated Troponin, suspect non-ischemic myocardial injury insetting of hypoxia and heart failure--noted
Coronary Artery Disease s/p CABG--Continue atorvastatin--Continue isosorbide mononitrate
Paroxysmal Atrial Fibrillation/Flutter--Continue amiodarone for rhythm control-Continue Coreg for rate control-Continue Eliquis for anticoagulation
Essential Hypertension-Continue Coreg and Hydralazine with hold parameters
Diabetes Mellitus, Type II-Continue Glipizide--accuchecks SSI
CKD Stage IIIB--Monitor creatinine closely on diuretics
COPD, no acute exacerbation--Continue albuterol PRN
Hypothyroidism--Continue levothyroxine--check TSH
GERD--Continue pantoprazole
Hx Abdominal Aortic Aneurysm s/p Endovascular Repair
DVT proph: Eliquis
Code Status: DNR
Anticipated Discharge: > 48 hours
Subjective/Interval History
-
Date of Service: July 06, 2024
pt without c/o--not sure how he is doing--to my eye breathing is better
Objective Data
-
Labs:
Laboratory Results
07/06/24
06:27
WBC 8.2
Hgb 9.2 L
Hct 31.5 L
Plt Count 233
Sodium 140
Potassium 3.5
Chloride 98
Carbon Dioxide 34 H
BUN 15
Creatinine 1.8 H
Glucose 150 H
Calcium 8.3 L
Vital Signs:
07/04/24
15:13 07/06/24
06:00
Actual Weight 89.2 kg 86.891 kg
Vital Signs
Temp Pulse Resp BP Pulse Ox
97.6 F 63 20 151/65 96
07/06/24 11:00 07/06/24 11:00 07/06/24 11:00 07/06/24 11:00 07/06/24 11:00
I&O
07/05/24 07/06/24 07/07/24
06:59 06:59 06:59
Intake Total 720 / 720 900 / 900
Output Total 1350 / 1350 1675 / 1675
Balance -630 / -630 -775 / -775
Review of Systems
-
All other systems: Reviewed and negative
Physical Exam
-
General: Well Developed, Well Nourished and No Apparent Distress
HEENT: Normocephalic, Atraumatic and Oxygen
Respiratory: Clear to Auscultation (anteriorly) and Other (breathing pattern improved); Negative Wheezes or Rhonchi
Cardiac: Regular Rhythm and S1/S2; Negative Murmur
GI: Soft, Nontender, Nondistended and Normal Bowel Sounds
Musculoskeletal: No Clubbing, No Cyanosis and No Edema
Neuro: Awake and Alert
[2024-07-06 15:30] VITALS: BP 134/57
[2024-07-06 16:43] LABS: Glucose - Point of Care 80 mg/dl (70-99)
[2024-07-06] MEDS: NOVOLOG FLEXPEN-LOW RESISTANCE SC (17:14)
[2024-07-06 19:00] VITALS: BP 140/62
[2024-07-06] MEDS: LIPITOR 40 MG PO (20:48)
[2024-07-06] MEDS: PACERONE 100 MG PO (20:48)
[2024-07-06 21:38] LABS: Glucose - Point of Care 197 mg/dl (70-99)
[2024-07-06 23:03] VITALS: BP 117/42
[2024-07-07 03:30] VITALS: BP 147/60
[2024-07-07] MEDS: SYNTHROID 25 MCG PO (05:33)
[2024-07-07 06:00] VITALS: BMI 26.7
[2024-07-07 07:01] VITALS: BP 151/63
[2024-07-07 07:12] LABS: Glucose - Point of Care 139 mg/dl (70-99)
[2024-07-07 07:35] LABS: Hematocrit 31.9 % (39.0-52.0); Hemoglobin 9.4 g/dL (13.0-18.0); Mean Corp Hgb Conc. 29.5 g/dL (33.0-37.0); Mean Corpuscular Hgb 24.5 pg (27.0-31.0); Mean Corpuscular Volume 83.1 fL (80.0-94.0); Mean Platelet Volume 10.4 fL (7.4-10.4); Platelet Count 234 10^3/uL (130-400); Red Blood Cell Count 3.84 10^6/uL (4.70-6.10); Red Cell Dist. Width 18.3 % (11.5-14.5); White Blood Cell Count 6.5 10^3/uL (4.8-10.8)
[2024-07-07 08:02] LABS: ALT (SGPT) 12 U/L (0-50); AST (SGOT) 19 U/L (17-59); Albumin 3.6 g/dl (3.5-5.0); Alkaline Phosphatase 67 U/L (38-126); Blood Urea Nitrogen 17 mg/dl (9-20); Calcium 8.4 mg/dl (8.4-10.2); Carbon Dioxide 36 mmol/L (22-30); Chloride 96 mmol/L (98-107); Estimated Creatinine Clearance 41 ml/min; Glucose 139 mg/dl (70-99); Magnesium 2.1 mg/dl (1.6-2.3); Potassium 3.7 mmol/L (3.5-5.1); Sodium 140 mmol/L (135-145); Total Protein 6.4 g/dl (6.3-8.2); eGFR 46.48
[2024-07-07] MEDS: NOVOLOG FLEXPEN-LOW RESISTANCE SC ×3 (08:52→18:42)
--- NOTE | 2024-07-07 10:24 | W.PN.CARDCBS ---
Addendum entered and electronically signed by Jeremiah Mae MD 07/07/24 10:50:
I saw and examined the patient.
The RESTAURANT CREW MEMBER or PA's note was reviewed and I agree with the note.
Comment: General: Well developed, well nourished in NAD.
Neck: Supple, no JVD, HJR, carotids +2 B/L, no bruits bilaterally.
Heart: Non displaced PMI, RRR, no murmurs, No S3, S4, no rubs.
Lungs: Scattered rhonchi
Abdomen: Normal bowel sounds, soft, non-tender, non-distended.
Extremities: No clubbing, cyanosis or edema bilaterally.
Neuro: Grossly nonfocal, awake, alert and oriented x3.
He remains short of breath and on oxygen. Will continue IV Lasix. Check echocardiogram. Replete potassium
Original Note:
Today's Communication / Plan
-
Continue IV Diuresis
Replete K+
Echo pending
Wean O2 as able
Impression / Plan
-
PCP: Dr. Cisse
Cardiology: Dr. Gill
Impression:
Presented
Heart failure with reduced ejection fraction decompensation
Abnormal cardiac troponin
CAD
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
Ischemic cardiomyopathy most recent EF 37% by echo 11/22/22
Chronic HFrEF
Paroxysmal atrial fibrillation/flutter
Chronic warfarin OAC managed by [facility]
Chronic amiodarone therapy
s/p EVAR with type II endoleak 02/2017
CKD, stage III
COPD with long history of tobacco abuse
Chronic left bundle-branch block
Hypertension
Hyperlipidemia
PAD
Echo Aug 2017:�Dilated LV with EF 20-25% global hypokinesis, with mild MR/TR
Echo Feb 2017: Mildly dilated LV, EF 30-35%, inferior and inferolateral akinesis with global hypokinesis, mild LVH, Mild MR/TR, PASP 42-47 mmHg
Echo 11/22/22: EF 37%, global hypokinesis with akinetic inferoseptal segment, septal hypertrophy, no significant valvular disease
Echocardiogram 02/06/2024: LV ejection fraction estimated 30 to 35% with global hypokinesis and akinesis of the inferoseptal mckeon. Mild aortic stenosis with mean gradient 10 mmHg.
Echo 07/07/2024: pending
Cardiac cath October 2016: RA 12, PA 52/20, Wedge 24. Dilated LV, EF 15-20%, global hypokinesis, calcified akinetic inferobasal wall, 70% ostial left main, 80% distal left main, 85% first diagonal stenosis, proximal circumflex 80% OM1 small, 90%, 100%
mid RCA occlusion
Plan:
Acute hypoxic respiratory insufficiency secondary to exacerbation of chronic systolic heart failure with reduced ejection fraction
-Chest x-ray and proBNP consistent with heart failure decompensation. proBNP 16,800
-Exacerbation likely related to salt indiscretion
-Weight down 5 lbs since admission but still volume overloaded. Continue diuresis with IV Lasix 40 mg IV twice daily
-Monitor renal function with diuresis. Keep K greater than 4, mag greater than 2; replete K+
-Creat improving down to 1.5 , was 1.8 yesterday.
-If renal function allows we will try to optimize medical therapy: Consider addition of JELENA/ARB or possibly Entresto.
-Case management to look into cost of SGLT2 inhibitor. Cost is reasonable for 2023 but will increased to $500-600 a month in 2024
-2D echocardiogram pending
-Still on 2 LPM of NC, wean as tolerating. Does have some wheezing noted. May benefit from nebulizer
-Patient has previously declined ICD therapies
History of paroxysmal atrial fibrillation currently in sinus rhythm with known left bundle branch block
-Rare PVCs on telemetry
-Continue to monitor on telemetry
-Continue amiodarone, carvedilol
-TSH is low, may need to adjust Synthroid; defer to primary service
-Continue Eliquis anticoagulation
Abnormal cardiac troponin
-Trend is relatively flat, peaked 0.134
-Not reporting chest pain or pressure
-Likely represents nonischemic myocardial injury in the setting of heart failure/hypoxemic respiratory insufficiency
Case management and hospitalist are in contact with family regarding prehospital plan to move him to [place] with his daughter
History of Present Illness:
I had the pleasure to meet your patient, her reassurance in room 407-2. Patient is known to [facility] and follows with my colleague Dr. Gill. He has a past medical history of ischemic cardiomyopathy with chronic systolic heart failure
and an ejection fraction of 30-35% on echocardiogram January 2024. He also has mild aortic stenosis with mean transaortic gradient 10 mmHg with no significant mitral or tricuspid insufficiency and no evidence of pulmonary hypertension. He underwent
bypass surgery in 2016 after an inferior wall ME. Optimal medical therapy has been limited by renal insufficiency and patient preference. Apparently he has declined ICD therapy. He also has a history of an infrarenal abdominal aortic aneurysm
without rupture status post EVAR with type II endoleak 02/2017 and peripheral arterial disease with bilateral SFA disease/claudication followed by Dr. David Wilson. His most recent aortic abdominal surveillance ultrasound dated 10/03/2023 showed patent
aortobiiliac stent graft with residual aneurysm sac stable/slightly improved measurement 6.3 cm (AP) x6.1 cm (transverse) with no evidence for endoleak. Prior study measured 6.4 x 6.5 cm. He also has a history of paroxysmal atrial fibrillation
maintaining sinus rhythm on amiodarone and anticoagulated with Eliquis. He reports increasing shortness of breath over the last several weeks since [place]. He had been living with his brother and his who are recently transition to
inpatient care at a [facility]. He reports in the last couple weeks having some salt rich foods including soups and frozen meals and has noted increased lower extremity edema and weight gain. He denies chest pain or pressure. He
denies syncope or near syncope. He has been compliant with his medications including Lasix which he is taking 40 mg daily and alternating days taking additional 20 mg in the evening. His daughter who lives in [place] was planning to move him
into her house the day of his admission.
Progress Note - Library Circulation Technician
Subjective
Date of Service: July 07, 2024
Patient seen and examined. Patient sitting up in bed eating breakfast. Reports breathing has improved some however still not back to baseline and last night noted orthopnea and PND.
Objective
Labs:
07/07/24 07:05
07/07/24 07:05
Labs
Hgb 9.4 g/dL (13.0-18.0) L 07/07/24 07:05
Hct 31.9 % (39.0-52.0) L 07/07/24 07:05
Plt Count 234 10^3/uL (130-400) 07/07/24 07:05
Sodium 140 mmol/L (135-145) 07/07/24 07:05
Potassium 3.7 mmol/L (3.5-5.1) 07/07/24 07:05
BUN 17 mg/dl (9-20) 07/07/24 07:05
Creatinine 1.5 mg/dL (0.7-1.3) H 07/07/24 07:05
Glucose 139 mg/dl (70-99) H 07/07/24 07:05
Troponins
07/04/24 07/04/24 07/05/24
14:50 20:49 02:17
Troponin I 0.049 H* 0.122 H* D 0.134 H*
07/05/24
08:04
Troponin I 0.102 H*
Vital Signs and I&O:
Vital Signs
Temp Pulse Resp BP Pulse Ox
97.7 F 66 16 151/63 93
07/07/24 07:01 07/07/24 07:01 07/07/24 07:01 07/07/24 07:01 07/07/24 07:01
Vital Signs
Temp Pulse Resp BP Pulse Ox
97.7 F 66 16 151/63 93
07/07/24 07:01 07/07/24 07:01 07/07/24 07:01 07/07/24 07:01 07/07/24 07:01
Intake & Output
07/05/24 07/06/24 07/07/24 07/08/24
06:59 06:59 06:59 06:59
Intake Total 720 / 720 900 / 900 1020 / 1020
Output Total 1350 / 1350 1675 / 1675 1900 / 1900
Balance -630 / -630 -775 / -775 -880 / -880
Physical Exam
Physical Exam
GEN: No distress, awake, Ox3, Sitting up in bed eating
HEENT: supple, anicteric, mmm
LUNGS:Diminished breath sounds with intermittent wheezing bilaterally, few scattered crackles; on 2 lpm NC
CV: Reg, S1/S2, no murmur, rub or gallop
ABD: soft, BS+, NT/ND, belly breathing noted
EXT: trace edema bilaterally
NEURO: Gross non-focal
SKIN: No rash, warm, dry, pink
[2024-07-07] MEDS: NORVASC 5 MG PO ×2 (10:43→19:48)
[2024-07-07] MEDS: APRESOLINE 50 MG PO ×2 (10:43→19:49)
[2024-07-07] MEDS: GLUCOTROL 10 MG PO ×2 (10:43→17:28)
[2024-07-07] MEDS: ELIQUIS 2.5 MG PO ×2 (10:43→19:48)
[2024-07-07] MEDS: LASIX 40 MG IV ×2 (10:44→17:28)
[2024-07-07] MEDS: COREG 6.25 MG PO (10:44)
[2024-07-07] MEDS: IMDUR (EXTENDED RELEASE) 30 MG PO (10:44)
[2024-07-07] MEDS: PROTONIX 40 MG PO (10:44)
[2024-07-07 11:51] VITALS: BP 146/59
[2024-07-07] MEDS: KCL 40 MEQ PO (12:18)
[2024-07-07 12:30] LABS: Glucose - Point of Care 178 mg/dl (70-99)
--- NOTE | 2024-07-07 14:36 | W.PN.HOSP.TC ---
Today's Communication/Plan
-
CT chest
Bronchodilators
cont Lasix
Assessment / Plan
Assessment / Plan
79yo M with PMHx of Afib on Eliquis, HLD. HTN, HFrEF, CAD, s/p EVAR, CKD, COPD, PAD came with SOB and hypoxia and managed for CHF. Echo showed significantly decreased EF to 25%.
A/P:
#Acute hypoxic insufficienct 2/2 systolic CHF exacerbation
#Afib, paroxysmal
#Ischemic CM
Lasix, serial electrolytes, daily weight
Cardio follows
CT chest since patient on Amio
Wean off O2
#COPD, in mid exacerbation
Start inhaled ICS/LABA
Duobneb
#Essential HTN
#PAD
#HLD
#HLD
#CKD stage 3
cont home meds
#hypothyroidism
Synthroid decreased
repeat TSH with PCP in 2-3 weeks
DVt ppx Eliquis
DNR/DNI
I have spent at least 58min reviewing chart, test results, communication with consultants and direct patient care
Anticipated Discharge: > 48 hours
Subjective/Interval History
-
Date of Service: July 07, 2024
Objective Data
-
Labs:
Laboratory Results
07/07/24
07:05
WBC 6.5
Hgb 9.4 L
Hct 31.9 L
Plt Count 234
Sodium 140
Potassium 3.7
Chloride 96 L
Carbon Dioxide 36 H
BUN 17
Creatinine 1.5 H
Glucose 139 H
Calcium 8.4
Total Bilirubin 1.0
AST 19
ALT 12
Alkaline Phosphatase 67
Vital Signs:
Vital Signs
Temp Pulse Resp BP Pulse Ox
97.6 F 68 20 146/59 92
07/07/24 11:51 07/07/24 11:51 07/07/24 11:51 07/07/24 11:51 07/07/24 11:51
I&O
07/06/24 07/07/24 07/08/24
06:59 06:59 06:59
Intake Total 900 / 900 1020 / 1020
Output Total 1675 / 1675 1900 / 1900
Balance -775 / -775 -880 / -880
Review of Systems
-
History Source: Patient
Respiratory: Reports Trouble Breathing
Physical Exam
-
General: No Apparent Distress
HEENT: Normocephalic
Respiratory: Wheezes
GI: Soft, Nontender and Nondistended
Musculoskeletal: No Clubbing, No Cyanosis and No Edema
Skin: Warm
Neuro: Awake, Alert, Oriented and AO x 3
Psych: Calm
[2024-07-07 15:17] VITALS: BP 129/56
[2024-07-07] MEDS: DUONEB 3 ML INH ×2 (15:38→19:54)
[2024-07-07 17:14] LABS: Glucose - Point of Care 150 mg/dl (70-99)
[2024-07-07 18:35] LABS: Glucose - Point of Care 148 mg/dl (70-99)
[2024-07-07] MEDS: LIPITOR 40 MG PO (19:47)
[2024-07-07] MEDS: COREG PO (19:47)
[2024-07-07 19:48] VITALS: BP 145/60
[2024-07-07] MEDS: PACERONE 100 MG PO (19:48)
[2024-07-07] MEDS: SYMBICORT 160/4.5 MCG INHALER 2 PUFF INH (19:54)
[2024-07-07 21:46] LABS: Glucose - Point of Care 246 mg/dl (70-99)
[2024-07-07 23:55] VITALS: BP 149/66
[2024-07-08 03:30] VITALS: BP 142/67
[2024-07-08] MEDS: SYNTHROID 25 MCG PO (05:43)
[2024-07-08 06:00] VITALS: BMI 26.6
[2024-07-08 07:16] LABS: Glucose - Point of Care 146 mg/dl (70-99)
[2024-07-08] MEDS: SYMBICORT 160/4.5 MCG INHALER 2 PUFF INH ×2 (07:20→20:40)
[2024-07-08] MEDS: DUONEB 3 ML INH ×4 (07:20→20:40)
[2024-07-08 07:22] LABS: % Basophils 0.5 % (0-2); % Eosinophils 1.5 % (0-6); % Immature Granulocytes 0.6 % (0-0.5); % Lymphocytes 5.7 % (20.5-51.1); % Monocytes 8.2 % (1.7-9.3); % Neutrophils 83.5 % (42.2-75.2); Absolute Eosinophils 0.1 10^3/uL (0-0.7); Absolute Immature Granulocytes 0.1 10^3/uL (0-0.05); Absolute Lymphocytes 0.5 10^3/uL (1.2-3.4); Absolute Monocytes 0.7 10^3/uL (0.1-0.6); Absolute Neutrophils 6.8 10^3/uL (1.4-6.5); Hematocrit 32.1 % (39.0-52.0); Hemoglobin 9.5 g/dL (13.0-18.0); Mean Corp Hgb Conc. 29.6 g/dL (33.0-37.0); Mean Corpuscular Hgb 24.4 pg (27.0-31.0); Mean Corpuscular Volume 82.5 fL (80.0-94.0); Nucleated Red Blood Cells % 0 % (-); Platelet Count 243 10^3/uL (130-400); Red Blood Cell Count 3.89 10^6/uL (4.70-6.10); Red Cell Dist. Width 18.4 % (11.5-14.5); White Blood Cell Count 8.2 10^3/uL (4.8-10.8)
[2024-07-08 07:23] VITALS: BP 133/58
[2024-07-08 07:32] LABS: ALT (SGPT) 12 U/L (0-50); AST (SGOT) 17 U/L (17-59); Albumin 3.7 g/dl (3.5-5.0); Alkaline Phosphatase 76 U/L (38-126); Blood Urea Nitrogen 16 mg/dl (9-20); Calcium 8.6 mg/dl (8.4-10.2); Carbon Dioxide 38 mmol/L (22-30); Chloride 95 mmol/L (98-107); Estimated Creatinine Clearance 39 ml/min; Glucose 148 mg/dl (70-99); Sodium 139 mmol/L (135-145); Total Bilirubin 0.9 mg/dl (0.2-1.3); Total Protein 6.4 g/dl (6.3-8.2); eGFR 43.02
[2024-07-08] MEDS: NOVOLOG FLEXPEN-LOW RESISTANCE SC ×3 (09:11→17:12)
[2024-07-08] MEDS: APRESOLINE 50 MG PO ×2 (09:32→20:18)
[2024-07-08] MEDS: GLUCOTROL 10 MG PO ×2 (09:32→17:14)
[2024-07-08] MEDS: NORVASC 5 MG PO ×2 (09:33→20:18)
[2024-07-08] MEDS: COREG 6.25 MG PO ×2 (09:33→20:18)
[2024-07-08] MEDS: ELIQUIS 2.5 MG PO ×2 (09:33→20:18)
[2024-07-08] MEDS: IMDUR (EXTENDED RELEASE) 30 MG PO (09:33)
[2024-07-08] MEDS: LASIX 60 MG IV ×2 (09:33→17:14)
[2024-07-08] MEDS: PROTONIX 40 MG PO (09:33)
[2024-07-08 11:41] VITALS: BP 124/48
--- NOTE | 2024-07-08 12:03 | W.PN.CARDCBS ---
Addendum entered and electronically signed by Jeremiah Mae MD 07/08/24 12:33:
I saw and examined the patient.
The DIRECTIONAL DRILLER or PA's note was reviewed and I agree with the note.
Comment: General: Well developed, well nourished in NAD.
Neck: Supple, no JVD, HJR, carotids +2 B/L, no bruits bilaterally.
Heart: Non displaced PMI, RRR, no murmurs, No S3, S4, no rubs.
Lungs: Scattered rhonchi
Extremities: No clubbing, cyanosis or edema bilaterally.
Neuro: Grossly nonfocal, awake, alert and oriented x3.
He still complains of shortness of. Will continue IV Lasix and follow renal function closely. Ejection fraction has decreased but has declined AICD in the past. He is moving to [facility].
Original Note:
Today's Communication / Plan
-
continue IV lasix
has previously declined ICD therapy
follow Cr
wean supp O2
Impression / Plan
-
PCP: Dr. Cisse
Cardiology: Dr. Gill
Impression:
Presented
Heart failure with reduced ejection fraction decompensation
Abnormal cardiac troponin
CAD
s/p CABG PICHARDO to LAD, saphenous vein graft to first diagonal, hx Inferior OR 01/09/17
Ischemic cardiomyopathy most recent EF 37% by echo 11/22/22
Chronic HFrEF
Paroxysmal atrial fibrillation/flutter
Chronic warfarin OAC managed by [facility]
Chronic amiodarone therapy
s/p EVAR with type II endoleak 02/2017
CKD, stage III
COPD with long history of tobacco abuse
Chronic left bundle-branch block
Hypertension
Hyperlipidemia
PAD
Echo Aug 2017:�Dilated LV with EF 20-25% global hypokinesis, with mild MR/TR
Echo Feb 2017: Mildly dilated LV, EF 30-35%, inferior and inferolateral akinesis with global hypokinesis, mild LVH, Mild MR/TR, PASP 42-47 mmHg
Echo 11/22/22: EF 37%, global hypokinesis with akinetic inferoseptal segment, septal hypertrophy, no significant valvular disease
Echocardiogram 02/06/2024: LV ejection fraction estimated 30 to 35% with global hypokinesis and akinesis of the inferoseptal mckeon. Mild aortic stenosis with mean gradient 10 mmHg.
Echo 07/07/2024: EF 20 to 25%, global hypokinesis with akinesis of inferolateral, inferior, basal septal mckeon, mild concentric LVH, stage II diastolic dysfunction, MAC, trace MR, mild AAS with peak/mean gradient 16/8 mmHg, PAP 47 mmHg
Cardiac cath October 2016: RA 12, PA 52/20, Wedge 24. Dilated LV, EF 15-20%, global hypokinesis, calcified akinetic inferobasal wall, 70% ostial left main, 80% distal left main, 85% first diagonal stenosis, proximal circumflex 80% OM1 small, 90%, 100%
mid RCA occlusion
Plan:
-Presented with exacerbation of chronic systolic heart failure, felt to be secondary to dietary indiscretion. He reports perhaps some mild improvement in breathing since admission. Lasix dose was increased to 60 mg IV twice daily, continue.
Creatinine relatively stable at 1.6.
-Wean supplemental oxygen as able
-EF by echo this admission 20 to 25%. Continue guideline directed medical therapy as able
-Continue beta-erik. No JELENA/ARB/Arni/Aldactone/SGLT2 given baseline renal insufficiency. Continue hydralazine/Imdur
-Patient has previously declined ICD therapies
-In sinus rhythm with known left bundle branch block. Continue Coreg, amiodarone
-TSH is low, may need to adjust Synthroid; defer to primary service
-Continue Eliquis anticoagulation
-Trope peaked at 0.134. Likely represents nonischemic myocardial injury in the setting of heart failure/hypoxemic respiratory insufficiency. No chest pain
-Case management and hospitalist are in contact with family regarding prehospital plan to move him to [place] with his daughter
History of Present Illness:
I had the pleasure to meet your patient, her reassurance in room 407-2. Patient is known to [facility] and follows with my colleague Dr. Gill. He has a past medical history of ischemic cardiomyopathy with chronic systolic heart failure
and an ejection fraction of 30-35% on echocardiogram January 2024. He also has mild aortic stenosis with mean transaortic gradient 10 mmHg with no significant mitral or tricuspid insufficiency and no evidence of pulmonary hypertension. He underwent
bypass surgery in 2016 after an inferior wall OR. Optimal medical therapy has been limited by renal insufficiency and patient preference. Apparently he has declined ICD therapy. He also has a history of an infrarenal abdominal aortic aneurysm
without rupture status post EVAR with type II endoleak 02/2017 and peripheral arterial disease with bilateral SFA disease/claudication followed by Dr. David Wilson. His most recent aortic abdominal surveillance ultrasound dated 10/03/2023 showed patent
aortobiiliac stent graft with residual aneurysm sac stable/slightly improved measurement 6.3 cm (AP) x6.1 cm (transverse) with no evidence for endoleak. Prior study measured 6.4 x 6.5 cm. He also has a history of paroxysmal atrial fibrillation
maintaining sinus rhythm on amiodarone and anticoagulated with Eliquis. He reports increasing shortness of breath over the last several weeks since [place]. He had been living with his brother and his who are recently transition to
inpatient care at a group home facility. He reports in the last couple weeks having some salt rich foods including soups and frozen meals and has noted increased lower extremity edema and weight gain. He denies chest pain or pressure. He
denies syncope or near syncope. He has been compliant with his medications including Lasix which he is taking 40 mg daily and alternating days taking additional 20 mg in the evening. His daughter who lives in [place] was planning to move him
into her house the day of his admission.
Progress Note - Beverage Distiller
Subjective
Date of Service: July 08, 2024
reports remains with SOB. no CP
Objective
Labs:
07/08/24 06:35
07/08/24 06:35
Labs
Hgb 9.5 g/dL (13.0-18.0) L 07/08/24 06:35
Hct 32.1 % (39.0-52.0) L 07/08/24 06:35
Plt Count 243 10^3/uL (130-400) 07/08/24 06:35
Sodium 139 mmol/L (135-145) 07/08/24 06:35
Potassium 4.0 mmol/L (3.5-5.1) 07/08/24 06:35
BUN 16 mg/dl (9-20) 07/08/24 06:35
Creatinine 1.6 mg/dL (0.7-1.3) H 07/08/24 06:35
Glucose 148 mg/dl (70-99) H 07/08/24 06:35
Vital Signs and I&O:
Vital Signs
Temp Pulse Resp BP Pulse Ox
98.1 F 59 20 124/48 93
07/08/24 11:41 07/08/24 11:41 07/08/24 11:41 07/08/24 11:41 07/08/24 11:41
Vital Signs
Temp Pulse Resp BP Pulse Ox
98.1 F 59 20 124/48 93
07/08/24 11:41 07/08/24 11:41 07/08/24 11:41 07/08/24 11:41 07/08/24 11:41
Intake & Output
07/06/24 07/07/24 07/08/24 07/09/24
07:59 07:59 07:59 07:59
Intake Total 900 / 900 1020 / 1020 500 / 500
Output Total 1675 / 1675 1900 / 1900 1875 / 1875
Balance -775 / -775 -880 / -880 -1375 / -1375
Physical Exam
Physical Exam
GEN: No distress, awake, alert, oriented x3. sitting in chair. on supp O2
HEENT: supple, anicteric, mmm, eomi
LUNGS: Crackles at bases, no wheezes
CV: Reg, S1/S2, 1/6 syst LSB
ABD: soft, BS+, NT/ND
EXT: No cyanosis, clubbing, edema
NEURO: Gross non-focal
SKIN: Warm, pink, dry. No rash
[2024-07-08 12:09] LABS: Glucose - Point of Care 186 mg/dl (70-99)
--- NOTE | 2024-07-08 12:36 | W.PN.HOSP.TC ---
Addendum entered and electronically signed by Parker Marti MD 07/08/24 12:45:
FUrosemide already recently increased. Will add metolazone for 2 days
Original Note:
Today's Communication/Plan
-
no significant weightloss over past few days, clinically fluid overloaded with crackles and LE edema
Will increase Furosemide to 60mg BID with close Cr follow up
Assessment / Plan
Assessment / Plan
79yo M with PMHx of Afib on Eliquis, HLD. HTN, HFrEF, CAD, s/p EVAR, CKD, COPD, PAD came with SOB and hypoxia and managed for CHF. Echo showed significantly decreased EF to 25%.
A/P:
#Acute hypoxic insufficience 2/2 systolic CHF exacerbation
#Afib, paroxysmal
#Ischemic CM
#Atelctasis
Lasix, serial electrolytes, daily weight
Cardio follows
CT chest: moderate CHF with reactive mediastinal lymphadenopathy
Wean off O2
Incentive spirometry
#COPD, in mild exacerbation - resolved
Start inhaled ICS/LABA
Duobneb
#Ascending aortic dilation 3.8cm
outpatient monitoring with PCP
#Essential HTN
#PAD
#HLD
#HLD
#CKD stage 3
cont home meds
#hypothyroidism
Synthroid decreased
repeat TSH with PCP in 2-3 weeks
#Mild anemia
outpatient w/u with PCP advised
previously s/p eval by GI in 2022 for anemia with FOBT neg stool
DVT ppx Eliquis
DNR/DNI
I have spent at least 58min reviewing chart, test results, communication with consultants and direct patient care
Anticipated Discharge: > 48 hours
Subjective/Interval History
-
Date of Service: July 08, 2024
Objective Data
-
Labs:
Laboratory Results
07/08/24
06:35
WBC 8.2
Hgb 9.5 L
Hct 32.1 L
Plt Count 243
Sodium 139
Potassium 4.0
Chloride 95 L
Carbon Dioxide 38 H
BUN 16
Creatinine 1.6 H
Glucose 148 H
Calcium 8.6
Total Bilirubin 0.9
AST 17
ALT 12
Alkaline Phosphatase 76
Vital Signs:
Vital Signs
Temp Pulse Resp BP Pulse Ox
98.1 F 59 20 124/48 93
07/08/24 11:41 07/08/24 11:41 07/08/24 11:41 07/08/24 11:41 07/08/24 11:41
I&O
07/07/24 07/08/24 07/09/24
06:59 06:59 06:59
Intake Total 1020 / 1020 500 / 500
Output Total 1900 / 1900 1875 / 1875
Balance -880 / -880 -1375 / -1375
Review of Systems
-
History Source: Patient
All other systems: Reviewed and negative
Physical Exam
-
General: No Apparent Distress
HEENT: Normocephalic
Respiratory: Crackles
Cardiac: Regular Rhythm
GI: Soft, Nontender and Nondistended
Genito-urinary: No Costovertebral Tender
Musculoskeletal: No Clubbing, No Cyanosis, Edema, Right Lower Extrem and Edema, Left Lower Extrem
Neuro: Awake
Psych: Calm
[2024-07-08] MEDS: ZAROXOLYN 5 MG PO (13:08)
[2024-07-08 15:59] VITALS: BP 145/60
[2024-07-08 17:10] LABS: Glucose - Point of Care 111 mg/dl (70-99)
[2024-07-08] MEDS: LIPITOR 40 MG PO (20:18)
[2024-07-08] MEDS: PACERONE 100 MG PO (20:18)
[2024-07-08 21:44] LABS: Glucose - Point of Care 217 mg/dl (70-99)
[2024-07-08 23:31] VITALS: BP 145/56
[2024-07-09 06:16] VITALS: BMI 25.6
[2024-07-09] MEDS: SYNTHROID 25 MCG PO (06:20)
[2024-07-09 07:31] LABS: Glucose - Point of Care 130 mg/dl (70-99)
[2024-07-09] MEDS: DUONEB 3 ML INH ×3 (08:04→20:25)
[2024-07-09] MEDS: SYMBICORT 160/4.5 MCG INHALER 2 PUFF INH ×2 (08:04→20:25)
[2024-07-09] MEDS: NOVOLOG FLEXPEN-LOW RESISTANCE SC (09:07)
[2024-07-09 09:12] VITALS: BP 151/63
[2024-07-09] MEDS: LASIX 60 MG IV ×2 (09:13→15:27)
[2024-07-09] MEDS: IMDUR (EXTENDED RELEASE) 30 MG PO (09:16)
[2024-07-09] MEDS: ZAROXOLYN 5 MG PO (09:16)
[2024-07-09] MEDS: PROTONIX 40 MG PO (09:16)
[2024-07-09] MEDS: GLUCOTROL 10 MG PO ×2 (09:16→17:38)
[2024-07-09] MEDS: APRESOLINE 50 MG PO ×2 (09:17→20:27)
[2024-07-09] MEDS: NORVASC 5 MG PO ×2 (09:17→20:29)
[2024-07-09] MEDS: ELIQUIS 2.5 MG PO ×2 (09:17→20:28)
[2024-07-09] MEDS: COREG 6.25 MG PO ×2 (09:17→20:29)
[2024-07-09 09:45] LABS: % Basophils 0.4 % (0-2); % Eosinophils 1.7 % (0-6); % Immature Granulocytes 0.6 % (0-0.5); % Lymphocytes 7.2 % (20.5-51.1); % Monocytes 9.7 % (1.7-9.3); % Neutrophils 80.4 % (42.2-75.2); Absolute Eosinophils 0.1 10^3/uL (0-0.7); Absolute Immature Granulocytes 0.1 10^3/uL (0-0.05); Absolute Lymphocytes 0.6 10^3/uL (1.2-3.4); Absolute Monocytes 0.8 10^3/uL (0.1-0.6); Absolute Neutrophils 6.5 10^3/uL (1.4-6.5); Hemoglobin 9.8 g/dL (13.0-18.0); Mean Corp Hgb Conc. 29.7 g/dL (33.0-37.0); Mean Corpuscular Hgb 23.9 pg (27.0-31.0); Mean Corpuscular Volume 80.5 fL (80.0-94.0); Mean Platelet Volume 11.3 fL (7.4-10.4); Nucleated Red Blood Cells % 0 % (-); Platelet Count 249 10^3/uL (130-400); Red Cell Dist. Width 18.3 % (11.5-14.5); White Blood Cell Count 8.1 10^3/uL (4.8-10.8)
[2024-07-09 11:10] LABS: ALT (SGPT) 12 U/L (0-50); AST (SGOT) 21 U/L (17-59); Albumin 3.7 g/dl (3.5-5.0); Alkaline Phosphatase 75 U/L (38-126); Blood Urea Nitrogen 19 mg/dl (9-20); Calcium 8.6 mg/dl (8.4-10.2); Carbon Dioxide 39 mmol/L (22-30); Chloride 87 mmol/L (98-107); Estimated Creatinine Clearance 39 ml/min; Glucose 107 mg/dl (70-99); Magnesium 2.2 mg/dl (1.6-2.3); Potassium 3.8 mmol/L (3.5-5.1); Sodium 135 mmol/L (135-145); Total Bilirubin 1.2 mg/dl (0.2-1.3); Total Protein 6.5 g/dl (6.3-8.2); eGFR 43.02
--- NOTE | 2024-07-09 11:44 | W.PN.HOSP.TC ---
Today's Communication/Plan
-
Wean off O2
No metolazone today as alkalosis develops
Assessment / Plan
Assessment / Plan
79yo M with PMHx of Afib on Eliquis, HLD. HTN, HFrEF, CAD, s/p EVAR, CKD, COPD, PAD came with SOB and hypoxia and managed for CHF. Echo showed significantly decreased EF to 25%. Hypoxia improved on diuresis
A/P:
#Acute hypoxic insufficience 2/2 systolic CHF exacerbation
#Afib, paroxysmal
#Ischemic CM
#Atelctasis
Lasix, serial electrolytes, daily weight
Cardio follows
CT chest: moderate CHF with reactive mediastinal lymphadenopathy
Wean off O2
Incentive spirometry
#COPD, in mild exacerbation - resolved
Start inhaled ICS/LABA
Duobneb
#Ascending aortic dilation 3.8cm
outpatient monitoring with PCP
#Essential HTN
#PAD
#HLD
#HLD
#CKD stage 3
cont home meds
#hypothyroidism
Synthroid decreased
repeat TSH with PCP in 2-3 weeks
#Mild anemia
outpatient w/u with PCP advised
previously s/p eval by GI in 2022 for anemia with FOBT neg stool
DVT ppx Eliquis
DNR/DNI
I have spent at least 58min reviewing chart, test results, communication with consultants and direct patient care
Anticipated Discharge: Within 24 hours
Subjective/Interval History
-
Date of Service: July 09, 2024
Objective Data
-
Labs:
Laboratory Results
07/09/24
08:38
WBC 8.1
Hgb 9.8 L
Hct 33.0 L
Plt Count 249
Sodium 135
Potassium 3.8
Chloride 87 L
Carbon Dioxide 39 H
BUN 19
Creatinine 1.6 H
Glucose 107 H
Calcium 8.6
Total Bilirubin 1.2
AST 21
ALT 12
Alkaline Phosphatase 75
Vital Signs:
Vital Signs
Temp Pulse Resp BP Pulse Ox
98.4 F 61 18 151/63 96
07/09/24 09:12 07/09/24 09:12 07/09/24 09:12 07/09/24 09:12 07/09/24 09:12
I&O
07/08/24 07/09/24 07/10/24
06:59 06:59 06:59
Intake Total 500 / 500 480 / 480
Output Total 1875 / 1875 2900 / 2900 250 / 250
Balance -1375 / -1375 -2420 / -2420 -250 / -250
Review of Systems
-
History Source: Patient
All other systems: Reviewed and negative
Physical Exam
-
General: No Apparent Distress
Respiratory: Clear to Auscultation
Cardiac: Regular Rhythm
GI: Soft, Nontender and Nondistended
Musculoskeletal: No Clubbing, No Cyanosis and No Edema
Skin: Warm
Neuro: Awake, Alert, Oriented and AO x 3
Psych: Calm
--- NOTE | 2024-07-09 11:55 | W.PN.CARDCBS ---
Addendum entered and electronically signed by Jeremiah Mae MD 07/09/24 12:06:
I saw and examined the patient.
The FILE SYSTEM INSTALLER or PA's note was reviewed and I agree with the note.
Comment: General: Well developed, well nourished in NAD.
Neck: Supple, no JVD, HJR, carotids +2 B/L, no bruits bilaterally.
Heart: Non displaced PMI, RRR, no murmurs, No S3, S4, no rubs.
Lungs: Scattered rhonchi at the bases
Extremities: No clubbing, cyanosis or edema bilaterally.
Neuro: Grossly nonfocal, awake, alert and oriented x3.
He continues to make progress. Continue IV Lasix as renal function remains stable. Continue attempts to try to wean oxygen.
Original Note:
Today's Communication / Plan
-
continue IV lasix
wean supp O2
continue coreg, hydralazine, imdur, eliquis, amiodarone, norvasc
Impression / Plan
-
PCP: Dr. Cisse
Cardiology: Dr. Gill
Impression:
Presented
Heart failure with reduced ejection fraction decompensation
Abnormal cardiac troponin
CAD
s/p CABG PICHARDO to LAD, saphenous vein graft to first diagonal, hx Inferior [place] 01/09/17
Ischemic cardiomyopathy most recent EF 37% by echo 11/22/22
Chronic HFrEF
Paroxysmal atrial fibrillation/flutter
Chronic warfarin OAC managed by [facility]
Chronic amiodarone therapy
s/p EVAR with type II endoleak 02/2017
CKD, stage III
COPD with long history of tobacco abuse
Chronic left bundle-branch block
Hypertension
Hyperlipidemia
PAD
Echo Aug 2017:�Dilated LV with EF 20-25% global hypokinesis, with mild MR/TR
Echo Feb 2017: Mildly dilated LV, EF 30-35%, inferior and inferolateral akinesis with global hypokinesis, mild LVH, Mild MR/TR, PASP 42-47 mmHg
Echo 11/22/22: EF 37%, global hypokinesis with akinetic inferoseptal segment, septal hypertrophy, no significant valvular disease
Echocardiogram 02/06/2024: LV ejection fraction estimated 30 to 35% with global hypokinesis and akinesis of the inferoseptal mckeon. Mild aortic stenosis with mean gradient 10 mmHg.
Echo 07/07/2024: EF 20 to 25%, global hypokinesis with akinesis of inferolateral, inferior, basal septal mckeon, mild concentric LVH, stage II diastolic dysfunction, MAC, trace MR, mild AAS with peak/mean gradient 16/8 mmHg, PAP 47 mmHg
Cardiac cath October 2016: RA 12, PA 52/20, Wedge 24. Dilated LV, EF 15-20%, global hypokinesis, calcified akinetic inferobasal wall, 70% ostial left main, 80% distal left main, 85% first diagonal stenosis, proximal circumflex 80% OM1 small, 90%, 100%
mid RCA occlusion
Plan:
-Presented with exacerbation of chronic systolic heart failure, felt to be secondary to dietary indiscretion.
-He reports good response to IV diuretics. Reports breathing is improving. Continue IV Lasix 60 mg twice daily. Creatinine stable at 1.6. hopefully transition to po lasix in next 24-48 hours
-Wean supplemental oxygen as able, currently on 2L NC. eval for home O2
-EF by echo this admission 20 to 25%. Continue GDMT with coreg, hydralazine, imdur. No JELENA/ARB/Arni/Aldactone/SGLT2 given baseline renal insufficiency.
-Patient has previously declined ICD therapies
-In sinus rhythm with known left bundle branch block. Continue Coreg, amiodarone
-TSH is low, may need to adjust Synthroid; defer to primary service
-Continue Eliquis anticoagulation
-Trope peaked at 0.134. Likely represents nonischemic myocardial injury in the setting of heart failure/hypoxemic respiratory insufficiency. No chest pain
-Case management and hospitalist are in contact with family regarding prehospital plan to move him to [place] with his daughter
-will arrange OP cardiac follow up
History of Present Illness:
I had the pleasure to meet your patient, her reassurance in room 407-2. Patient is known to [facility] and follows with my colleague Dr. Gill. He has a past medical history of ischemic cardiomyopathy with chronic systolic heart failure
and an ejection fraction of 30-35% on echocardiogram January 2024. He also has mild aortic stenosis with mean transaortic gradient 10 mmHg with no significant mitral or tricuspid insufficiency and no evidence of pulmonary hypertension. He underwent
bypass surgery in 2016 after an inferior wall [place]. Optimal medical therapy has been limited by renal insufficiency and patient preference. Apparently he has declined ICD therapy. He also has a history of an infrarenal abdominal aortic aneurysm
without rupture status post EVAR with type II endoleak 02/2017 and peripheral arterial disease with bilateral SFA disease/claudication followed by Dr. David Wilson. His most recent aortic abdominal surveillance ultrasound dated 10/03/2023 showed patent
aortobiiliac stent graft with residual aneurysm sac stable/slightly improved measurement 6.3 cm (AP) x6.1 cm (transverse) with no evidence for endoleak. Prior study measured 6.4 x 6.5 cm. He also has a history of paroxysmal atrial fibrillation
maintaining sinus rhythm on amiodarone and anticoagulated with Eliquis. He reports increasing shortness of breath over the last several weeks since [place]. He had been living with his brother and his who are recently transition to
inpatient care at a longterm facility. He reports in the last couple weeks having some salt rich foods including soups and frozen meals and has noted increased lower extremity edema and weight gain. He denies chest pain or pressure. He
denies syncope or near syncope. He has been compliant with his medications including Lasix which he is taking 40 mg daily and alternating days taking additional 20 mg in the evening. His daughter who lives in [place] was planning to move him
into her house the day of his admission.
Progress Note - Tobacco Weigher
Subjective
Date of Service: July 09, 2024
reports good response to diuresis overnight/this AM
Objective
Labs:
07/09/24 08:38
07/09/24 08:38
Labs
Hgb 9.8 g/dL (13.0-18.0) L 07/09/24 08:38
Hct 33.0 % (39.0-52.0) L 07/09/24 08:38
Plt Count 249 10^3/uL (130-400) 07/09/24 08:38
Sodium 135 mmol/L (135-145) 07/09/24 08:38
Potassium 3.8 mmol/L (3.5-5.1) 07/09/24 08:38
BUN 19 mg/dl (9-20) 07/09/24 08:38
Creatinine 1.6 mg/dL (0.7-1.3) H 07/09/24 08:38
Glucose 107 mg/dl (70-99) H 07/09/24 08:38
Vital Signs and I&O:
Vital Signs
Temp Pulse Resp BP Pulse Ox
98.4 F 61 18 151/63 96
07/09/24 09:12 07/09/24 09:12 07/09/24 09:12 07/09/24 09:12 07/09/24 09:12
Vital Signs
Temp Pulse Resp BP Pulse Ox
98.4 F 61 18 151/63 96
07/09/24 09:12 07/09/24 09:12 07/09/24 09:12 07/09/24 09:12 07/09/24 09:12
Intake & Output
07/07/24 07/08/24 07/09/24 07/10/24
07:59 07:59 07:59 07:59
Intake Total 1020 / 1020 500 / 500 480 / 480
Output Total 1900 / 1900 1875 / 1875 2900 / 2900 250 / 250
Balance -880 / -880 -1375 / -1375 -2420 / -2420 -250 / -250
Physical Exam
Physical Exam
GEN: No distress, awake, alert, oriented x3. on supp O2
HEENT: supple, anicteric, mmm, eomi
LUNGS: Crackles at bases, no wheezes
CV: Reg, S1/S2, 1/6 syst LSB
ABD: soft, BS+, NT/ND
EXT: No cyanosis, clubbing, edema
NEURO: Gross non-focal
SKIN: Warm, pink, dry. No rash
[2024-07-09 12:02] VITALS: BP 135/49
[2024-07-09] MEDS: DUONEB INH (12:11)
[2024-07-09 12:39] LABS: Glucose - Point of Care 214 mg/dl (70-99)
--- NOTE | 2024-07-09 12:41 | PTCARENOTE ---
pt placed on room air. pulse ox decreased to 75%. pt placed back on 2lnc. 02 increased to 92%. Md cheung.
[2024-07-09] MEDS: NOVOLOG FLEXPEN-LOW RESISTANCE 2 UNITS SC (12:43)
[2024-07-09 15:05] VITALS: BP 137/58
[2024-07-09] MEDS: NOVOLOG FLEXPEN-LOW RESISTANCE 1 UNITS SC (17:38)
[2024-07-09 17:39] LABS: Glucose - Point of Care 198 mg/dl (70-99)
[2024-07-09] MEDS: LIPITOR 40 MG PO (20:29)
[2024-07-09] MEDS: PACERONE 100 MG PO (20:29)
[2024-07-09] MEDS: FLUSH (NSS) 1 FLUSH IV (20:31)
[2024-07-09 22:19] LABS: Glucose - Point of Care 133 mg/dl (70-99)
[2024-07-09 23:55] VITALS: BP 136/53
[2024-07-10] MEDS: SYNTHROID 25 MCG PO (05:42)
[2024-07-10 06:00] VITALS: BMI 24.9
[2024-07-10 07:45] LABS: Blood Urea Nitrogen 23 mg/dl (9-20); Calcium 8.7 mg/dl (8.4-10.2); Chloride 84 mmol/L (98-107); Estimated Creatinine Clearance 32 ml/min; Glucose 141 mg/dl (70-99); Magnesium 2.1 mg/dl (1.6-2.3); Potassium 3.6 mmol/L (3.5-5.1); Sodium 133 mmol/L (135-145)
[2024-07-10 07:50] VITALS: BP 137/58
[2024-07-10] MEDS: DUONEB 3 ML INH ×3 (07:50→15:39)
[2024-07-10] MEDS: SYMBICORT 160/4.5 MCG INHALER 2 PUFF INH ×2 (07:50→19:34)
[2024-07-10 08:05] LABS: Carbon Dioxide 36 mmol/L (22-30)
[2024-07-10 08:08] LABS: Glucose - Point of Care 134 mg/dl (70-99)
[2024-07-10] MEDS: NOVOLOG FLEXPEN-LOW RESISTANCE SC (09:39)
[2024-07-10] MEDS: IMDUR (EXTENDED RELEASE) 30 MG PO (09:50)
[2024-07-10] MEDS: GLUCOTROL 10 MG PO ×2 (09:50→17:57)
[2024-07-10] MEDS: LASIX 60 MG IV (09:50)
[2024-07-10] MEDS: COREG 6.25 MG PO ×2 (09:50→20:19)
[2024-07-10] MEDS: APRESOLINE 50 MG PO ×2 (09:50→20:20)
[2024-07-10] MEDS: ELIQUIS 2.5 MG PO ×2 (09:50→20:22)
[2024-07-10] MEDS: NORVASC 5 MG PO ×2 (09:52→20:19)
[2024-07-10] MEDS: PROTONIX 40 MG PO (09:52)
--- NOTE | 2024-07-10 10:41 | W.PN.CARDCBS ---
Addendum entered and electronically signed by Fauzia Cortés DO 07/10/24 13:21:
I saw and examined the patient.
The Consultant Technology's note was reviewed and I agree with the note.
Comment: Patient seen and examined. Sitting out of bed to chair and overall feeling better with less shortness of breath and improved edema. Still requiring supplemental O2. Anxious for discharge soon with his daughter up at [place].
GEN: No distress, awake, alert, oriented x3. on supp O2
HEENT:mmm
LUNGS: Bronchovesicular breath sounds decreased at bases but clear
CV: Reg, S1/S2, 1/6 syst LSB
ABD: soft, BS+, NT/ND
EXT: No significant lower extremity edema. Resolved hand edema
Plan:
Acute hypoxic respiratory insufficiency secondary to exacerbation of chronic systolic heart failure with reduced ejection fraction exacerbated by salt indiscretion
-Chest x-ray and proBNP consistent with heart failure decompensation. Initial proBNP 16,800
-18 pound weight reduction with IV Lasix/metolazone with improved heart failure symptoms
-Will transition to oral Lasix at increased dose, 40 mg twice daily.
-Goal-directed medical therapy limited by renal function. Renal contraindication to use of JELENA/ARB or Entresto and Aldactone. Renal contraindication at this time to use of SGLT2 inhibitor but can be readdressed as an outpatient. Could consider
adding verquvo 2.5 mg daily with up titration as an outpatient
- He is also previously disinclined ICD therapy.
-Will arrange for close cardiac follow-up after this hospitalization in our office however he is moving to [place] to be with his daughter. He will need close cardiac follow-up in his new area up at [place].
Persistent hypoxemia on 2 L nasal cannula
-CT of the chest 12/06/2023 with evidence of ongoing heart failure and small bilateral pleural effusions. No pulmonary masses. No significant interstitial lung disease. Mediastinal lymphadenopathy felt to be likely reactive. Thyroid gland was
unremarkable.
-Discussed with primary hospitalist savannah assess for home oxygen needs as well as nocturnal O2 needs.
-Consider outpatient pulmonary evaluation for sleep apnea
History of paroxysmal atrial fibrillation currently in sinus rhythm with known left bundle branch block
-PVCs/ventricular bigeminy on telemetry
-Continue to monitor on telemetry
-Continue amiodarone, carvedilol
-Continue Eliquis anticoagulation.
Hyperthyroid state with history of hypothyroidism on levothyroxine�will defer to primary hospitalist
Abnormal cardiac troponin, flat without chest pain or pressure.
-Likely represents nonischemic myocardial injury in the setting of heart failure/hypoxemic respiratory insufficiency
Chronic renal sufficiency�creatinine appears at baseline.
History of AAA status post EVAR and PAD�stable
History of COPD with prior tobacco dependence�noted
Type 2 diabetes mellitus, defer to medicine. Goal normoglycemia.
PT/OT evaluation ongoing
Discharge planning discussed with primary
Anticipate discharge home tomorrow
Original Note:
Today's Communication / Plan
-
continue IV lasix, stop metolazone. consider transition to po lasix in AM
wean supp O2
OP cardiac follow up arranged
Impression / Plan
-
PCP: Dr. Cisse
Cardiology: Dr. Gill
Impression:
Presented
Heart failure with reduced ejection fraction decompensation
Abnormal cardiac troponin
CAD
s/p CABG PICHARDO to LAD, saphenous vein graft to first diagonal, hx Inferior ID 01/09/17
Ischemic cardiomyopathy most recent EF 37% by echo 11/22/22
Chronic HFrEF
Paroxysmal atrial fibrillation/flutter
Chronic warfarin OAC managed by [facility]
Chronic amiodarone therapy
s/p EVAR with type II endoleak 02/2017
CKD, stage III
COPD with long history of tobacco abuse
Chronic left bundle-branch block
Hypertension
Hyperlipidemia
PAD
Echo Aug 2017:�Dilated LV with EF 20-25% global hypokinesis, with mild MR/TR
Echo Feb 2017: Mildly dilated LV, EF 30-35%, inferior and inferolateral akinesis with global hypokinesis, mild LVH, Mild MR/TR, PASP 42-47 mmHg
Echo 11/22/22: EF 37%, global hypokinesis with akinetic inferoseptal segment, septal hypertrophy, no significant valvular disease
Echocardiogram 02/06/2024: LV ejection fraction estimated 30 to 35% with global hypokinesis and akinesis of the inferoseptal mckeon. Mild aortic stenosis with mean gradient 10 mmHg.
Echo 07/07/2024: EF 20 to 25%, global hypokinesis with akinesis of inferolateral, inferior, basal septal mckeon, mild concentric LVH, stage II diastolic dysfunction, MAC, trace MR, mild AAS with peak/mean gradient 16/8 mmHg, PAP 47 mmHg
Cardiac cath October 2016: RA 12, PA 52/20, Wedge 24. Dilated LV, EF 15-20%, global hypokinesis, calcified akinetic inferobasal wall, 70% ostial left main, 80% distal left main, 85% first diagonal stenosis, proximal circumflex 80% OM1 small, 90%, 100%
mid RCA occlusion
Plan:
-Presented with exacerbation of chronic systolic heart failure, felt to be secondary to dietary indiscretion.
-weight continues to trend down, and reports continued good response to lasix/metolazone. wean supp O2 as able. Cr bumped to 1.9. metolazone stopped. continue IV lasix today and consider transition to po in AM. was on 20mg po lasix daily with 20mg
po Q48H in PM. would plan to DC on po lasix 40mg BID with BMP in 1 week
-EF by echo this admission 20 to 25%. Continue GDMT with coreg, hydralazine, imdur. No JELENA/ARB/Arni/Aldactone/SGLT2 given baseline renal insufficiency.
-Patient has previously declined ICD therapies
-In sinus rhythm with known left bundle branch block. Continue Coreg, amiodarone
-TSH is low, may need to adjust Synthroid; defer to primary service
-Continue Eliquis anticoagulation
-Trope peaked at 0.134. Likely represents nonischemic myocardial injury in the setting of heart failure/hypoxemic respiratory insufficiency. No chest pain
-Case management and hospitalist are in contact with family regarding prehospital plan to move him to [place] with his daughter
-OP cardiac follow up arranged
History of Present Illness:
I had the pleasure to meet your patient, her reassurance in room 407-2. Patient is known to [place] [facility] and follows with my colleague Dr. Gill. He has a past medical history of ischemic cardiomyopathy with chronic systolic heart failure
and an ejection fraction of 30-35% on echocardiogram January 2024. He also has mild aortic stenosis with mean transaortic gradient 10 mmHg with no significant mitral or tricuspid insufficiency and no evidence of pulmonary hypertension. He underwent
bypass surgery in 2016 after an inferior wall ID. Optimal medical therapy has been limited by renal insufficiency and patient preference. Apparently he has declined ICD therapy. He also has a history of an infrarenal abdominal aortic aneurysm
without rupture status post EVAR with type II endoleak 02/2017 and peripheral arterial disease with bilateral SFA disease/claudication followed by Dr. David Wilson. His most recent aortic abdominal surveillance ultrasound dated 10/03/2023 showed patent
aortobiiliac stent graft with residual aneurysm sac stable/slightly improved measurement 6.3 cm (AP) x6.1 cm (transverse) with no evidence for endoleak. Prior study measured 6.4 x 6.5 cm. He also has a history of paroxysmal atrial fibrillation
maintaining sinus rhythm on amiodarone and anticoagulated with Eliquis. He reports increasing shortness of breath over the last several weeks since . He had been living with his brother and his who are recently transition to
inpatient care at a long-term facility. He reports in the last couple weeks having some salt rich foods including soups and frozen meals and has noted increased lower extremity edema and weight gain. He denies chest pain or pressure. He
denies syncope or near syncope. He has been compliant with his medications including Lasix which he is taking 40 mg daily and alternating days taking additional 20 mg in the evening. His daughter who lives in [place] was planning to move him
into her house the day of his admission.
Progress Note - [employer] Relations Recruiter
Subjective
Date of Service: July 10, 2024
reports continued good response to lasix.
Objective
Labs:
07/09/24 08:38
07/10/24 06:35
Labs
Hgb 9.8 g/dL (13.0-18.0) L 07/09/24 08:38
Hct 33.0 % (39.0-52.0) L 07/09/24 08:38
Plt Count 249 10^3/uL (130-400) 07/09/24 08:38
Sodium 133 mmol/L (135-145) L 07/10/24 06:35
Potassium 3.6 mmol/L (3.5-5.1) 07/10/24 06:35
BUN 23 mg/dl (9-20) H 07/10/24 06:35
Creatinine 1.9 mg/dL (0.7-1.3) H 07/10/24 06:35
Glucose 141 mg/dl (70-99) H 07/10/24 06:35
Vital Signs and I&O:
Vital Signs
Temp Pulse Resp BP Pulse Ox
98.4 F 70 16 137/58 96
07/10/24 07:50 07/10/24 07:52 07/10/24 07:52 07/10/24 07:50 07/10/24 07:52
Vital Signs
Temp Pulse Resp BP Pulse Ox
98.4 F 70 16 137/58 96
07/10/24 07:50 07/10/24 07:52 07/10/24 07:52 07/10/24 07:50 07/10/24 07:52
Intake & Output
07/08/24 07/09/24 07/10/24 07/11/24
07:59 07:59 07:59 07:59
Intake Total 500 / 500 480 / 480 0 / 0
Output Total 1875 / 1875 2900 / 2900 235 / 235
Balance -1375 / -1375 -2420 / -2420 -2349 / -2349
Physical Exam
Physical Exam
GEN: No distress, awake, alert, oriented x3. on supp O2
HEENT: supple, anicteric, mmm, eomi
LUNGS: Crackles at bases, no wheezes
CV: Reg, S1/S2, 1/6 syst LSB
ABD: soft, BS+, NT/ND
EXT: No cyanosis, clubbing, edema
NEURO: Gross non-focal
SKIN: Warm, pink, dry. No rash
[2024-07-10 10:51] VITALS: BP 106/49; PULSE 63; O2SAT 95
--- NOTE | 2024-07-10 11:12 | W.PN.HOSP.TC ---
Today's Communication/Plan
-
As per card - oral Lasix in AM - patient reached appropriate weight loss
Home O2 assessment
As per PT/OT - doing well, might be appropriate for home
Assessment / Plan
Assessment / Plan
79yo M with PMHx of Afib on Eliquis, HLD. HTN, HFrEF, CAD, s/p EVAR, CKD, COPD, PAD came with SOB and hypoxia and managed for CHF. Echo showed significantly decreased EF to 25%. Hypoxia improved on diuresis
A/P:
#Acute hypoxic insufficience 2/2 systolic CHF exacerbation
#Afib, paroxysmal
#Ischemic CM
#Atelctasis
Lasix, serial electrolytes, daily weight
Cardio follows
CT chest: moderate CHF with reactive mediastinal lymphadenopathy
Wean off O2
Incentive spirometry
#COPD, in mild exacerbation - resolved
Start inhaled ICS/LABA
Duobneb
#Ascending aortic dilation 3.8cm
outpatient monitoring with PCP
#Essential HTN
#PAD
#HLD
#HLD
#CKD stage 3
cont home meds
#hypothyroidism
Synthroid decreased
repeat TSH with PCP in 2-3 weeks
#Mild anemia
outpatient w/u with PCP advised
previously s/p eval by GI in 2022 for anemia with FOBT neg stool
DVT ppx Eliquis
DNR/DNI
I have spent at least 58min reviewing chart, test results, communication with consultants and direct patient care
Anticipated Discharge: Within 24 hours
Subjective/Interval History
-
Date of Service: July 10, 2024
Objective Data
-
Labs:
Laboratory Results
07/10/24
06:35
Sodium 133 L
Potassium 3.6
Chloride 84 L
Carbon Dioxide 36 H
BUN 23 H
Creatinine 1.9 H
Glucose 141 H
Calcium 8.7
Vital Signs:
Vital Signs
Temp Pulse Resp BP Pulse Ox
98.4 F 70 16 137/58 96
07/10/24 07:50 07/10/24 07:52 07/10/24 07:52 07/10/24 07:50 07/10/24 07:52
I&O
07/09/24 07/10/24 07/11/24
06:59 06:59 06:59
Intake Total 480 / 480 0 / 0
Output Total 2900 / 2900 2350 / 2350
Balance -2420 / -2420 -2350 / -2350
Review of Systems
-
History Source: Patient
All other systems: Reviewed and negative
Physical Exam
-
General: No Apparent Distress
HEENT: Normocephalic
Respiratory: Clear to Auscultation
GI: Soft, Nontender and Nondistended
Musculoskeletal: No Clubbing, No Cyanosis and No Edema
Neuro: Awake, Alert, Oriented and AO x 3
Psych: Calm
[2024-07-10 12:04] LABS: Glucose - Point of Care 158 mg/dl (70-99)
[2024-07-10] MEDS: NOVOLOG FLEXPEN-LOW RESISTANCE 1 UNITS SC ×2 (13:44→17:56)
[2024-07-10 13:55] VITALS: BP 132/53
[2024-07-10 13:59] LABS: Glucose - Point of Care 178 mg/dl (70-99)
--- NOTE | 2024-07-10 14:00 | RESPNOTE ---
attempted home o2 eval per MD order. 86% on room air at rest. placed patient on 2L-recovered to 92%. after walking 20 ft patient started to complain of dizziness and nausea and started to become less responsive. RN and myself immediately placed
patient in the chair and got him back to bed. patient started to become more responsive after laying flat. 95% on 2L, MD notified.
--- NOTE | 2024-07-10 14:10 | PTCARENOTE ---
Pt ambulated into the hallway for home O2 assessment with assist of RT and RN and rolling walker. Pt reported feeling nauseous and we made turn to return into room. Pt asked to sit down before he made it back to his bed so a chair was placed behind
him. Pt then started to slump in chair and became less responsive but still able to respond slowly to questions. Pt lifted back into bed by associates because he was unable to stand and then quickly recovered to baseline mental status. BP 132/53 HR
60 pulsox 97 on 2L once returned to bed. Blood sugar 178 EKG showed sinus bradycardia HR 58 with PVCs and nonspecific intraventricular block. Pt reports still feeling unwell but improving and is now conversing normally. MÉNDEZ. No neuro deficits noted.
Dr. Marti aware. Order placed for daily orthostatic VS. Pt has call delacruz within reach.
[2024-07-10 15:56] VITALS: BP 130/52
[2024-07-10] MEDS: LASIX IV (16:36)
[2024-07-10 16:51] LABS: Glucose - Point of Care 169 mg/dl (70-99)
[2024-07-10] MEDS: LIPITOR 40 MG PO (20:20)
[2024-07-10] MEDS: PACERONE 100 MG PO (20:21)
[2024-07-10 21:26] LABS: Glucose - Point of Care 205 mg/dl (70-99)
[2024-07-10 23:56] VITALS: BP 137/60
[2024-07-11] MEDS: SYNTHROID 25 MCG PO (05:12)
[2024-07-11 05:57] VITALS: BMI 24.7
[2024-07-11 06:57] VITALS: BP 139/58
[2024-07-11] MEDS: SYMBICORT 160/4.5 MCG INHALER 2 PUFF INH ×2 (07:32→20:20)
[2024-07-11 08:00] LABS: Glucose - Point of Care 122 mg/dl (70-99)
[2024-07-11] MEDS: APRESOLINE 50 MG PO ×2 (08:15→20:58)
[2024-07-11] MEDS: NOVOLOG FLEXPEN-LOW RESISTANCE SC (08:15)
[2024-07-11] MEDS: PROTONIX 40 MG PO (08:15)
[2024-07-11] MEDS: ELIQUIS 2.5 MG PO ×2 (08:16→20:58)
[2024-07-11] MEDS: NORVASC 5 MG PO ×2 (08:16→20:57)
[2024-07-11] MEDS: IMDUR (EXTENDED RELEASE) 30 MG PO (08:16)
[2024-07-11] MEDS: COREG 6.25 MG PO ×2 (08:16→20:58)
[2024-07-11] MEDS: GLUCOTROL 10 MG PO ×2 (09:20→16:43)
[2024-07-11 09:34] LABS: ALT (SGPT) 12 U/L (0-50); AST (SGOT) 18 U/L (17-59); Albumin 3.9 g/dl (3.5-5.0); Alkaline Phosphatase 78 U/L (38-126); Blood Urea Nitrogen 34 mg/dl (9-20); Calcium 8.9 mg/dl (8.4-10.2); Chloride 83 mmol/L (98-107); Direct Bilirubin 0.3 mg/dl (0.0-0.4); Estimated Creatinine Clearance 27 ml/min; Glucose 116 mg/dl (70-99); Magnesium 2.4 mg/dl (1.6-2.3); Potassium 3.7 mmol/L (3.5-5.1); Sodium 134 mmol/L (135-145); Total Bilirubin 0.9 mg/dl (0.2-1.3); Total Protein 6.7 g/dl (6.3-8.2); eGFR 27.83
[2024-07-11 09:40] LABS: % Basophils 0.5 % (0-2); % Eosinophils 1.4 % (0-6); % Immature Granulocytes 0.4 % (0-0.5); % Lymphocytes 7.4 % (20.5-51.1); % Monocytes 10.3 % (1.7-9.3); Absolute Eosinophils 0.1 10^3/uL (0-0.7); Absolute Lymphocytes 0.5 10^3/uL (1.2-3.4); Absolute Monocytes 0.8 10^3/uL (0.1-0.6); Absolute Neutrophils 5.8 10^3/uL (1.4-6.5); Hematocrit 33.8 % (39.0-52.0); Hemoglobin 10.1 g/dL (13.0-18.0); Mean Corp Hgb Conc. 29.9 g/dL (33.0-37.0); Mean Corpuscular Hgb 23.8 pg (27.0-31.0); Mean Corpuscular Volume 79.5 fL (80.0-94.0); Mean Platelet Volume 9.8 fL (7.4-10.4); Nucleated Red Blood Cells % 0 % (-); Platelet Count 247 10^3/uL (130-400); Red Blood Cell Count 4.25 10^6/uL (4.70-6.10); Red Cell Dist. Width 18.3 % (11.5-14.5); White Blood Cell Count 7.3 10^3/uL (4.8-10.8)
[2024-07-11 09:42] LABS: Carbon Dioxide 37 mmol/L (22-30)
[2024-07-11 09:47] LABS: Venous Blood Gas B.E. 19.8 mmol/L (-4 to +4); Venous Blood Gas HCO3 45.5 mmol/L (22-27); Venous Blood Gas pCO2 57 mmHg (35-48); Venous Blood Gas pH 7.51 (7.32-7.43); Venous Blood Gas pO2 88 mmHg (30-50)
[2024-07-11 10:01] LABS: TSH Reflex To Free T4 0.07 uIU/ml (0.47-4.68)
--- NOTE | 2024-07-11 10:10 | CM ---
Addendum entered by Lubna Melo 07/11/24 10:37:
CM updated Dr Marti re: plan and he advised that Surya now has HANY and is not ready for discharge.
TT sent to Dr. Marti with Daughter's phone number to provide medical update.
CM will continue to follow.
Original Note:
CM spoke with Surya's daughter today regarding discharge plans. SNF and home health services were offered and declined. Surya's daughter will pick him up tomorrow to bring him to her home in [place].
Plan: Discharge to home with no needs per daughter's request.
--- NOTE | 2024-07-11 10:13 | W.PN.CARDCBS ---
Addendum entered and electronically signed by Fauzia Cortés DO 07/11/24 11:32:
I saw and examined the patient.
The [employer] Transplanter's note was reviewed and I agree with the note.
Comment: Patient seen and examined. Lying supine in bed with 2 L nasal cannula and says he feels better. No shortness of breath at rest or lying flat. No chest pain or pressure. Resolved lower extremity edema.
General: 79-year-old frail chronically ill gentleman lying supine with 2 L nasal cannula. No conversational dyspnea. NAD.
Heart: Regular, positive S1/S2, 2/6 SM
Lungs: Bronchovesicular breath sounds, clear
Abd: Positive BS, NT/ND, neg rebound/rigidity/guarding
Ext: No edema
Neuro: nonfocal
Plan:
Acute hypoxic respiratory insufficiency secondary to exacerbation of chronic systolic heart failure with reduced ejection fraction exacerbated by salt indiscretion
-Chest x-ray and proBNP consistent with heart failure decompensation. Initial proBNP 16,800
-> 18 pound weight reduction with IV Lasix/metolazone with improved heart failure symptoms
-Patient appears dehydrated with increased creatinine today. No further IV Lasix. Will transition to oral Lasix 40 mg twice daily when creatinine is stable
-Goal-directed medical therapy limited by renal function. Renal contraindication to use of JELENA/ARB or Entresto and Aldactone. Renal contraindication at this time to use of SGLT2 inhibitor but can be readdressed as an outpatient. Could consider
adding verquvo 2.5 mg daily with up titration as an outpatient
- He is also previously disinclined ICD therapy.
-Will arrange for close cardiac follow-up after this hospitalization in our office however he is moving to [place] to be with his daughter. He will need close cardiac follow-up in his new area up at [place].
Acute on chronic renal insufficiency with creatinine 2.3 today following aggressive IV diuresis
-Hold further Lasix today and monitor renal function closely
Persistent hypoxemia on 2 L nasal cannula
-CT of the chest 12/06/2023 with evidence of ongoing heart failure and small bilateral pleural effusions. No pulmonary masses. No significant interstitial lung disease. Mediastinal lymphadenopathy felt to be likely reactive. Thyroid gland was
unremarkable.
-Ambulatory and not terminal O2 needs being assessed by primary
-Consider outpatient pulmonary evaluation for sleep apnea
History of paroxysmal atrial fibrillation currently in sinus rhythm with known left bundle branch block
-PVCs/ventricular bigeminy on telemetry
-Continue to monitor on telemetry
-Continue amiodarone, carvedilol
-Continue Eliquis anticoagulation.
Hyperthyroid state with history of hypothyroidism on levothyroxine�will defer to primary hospitalist
Abnormal cardiac troponin, flat without chest pain or pressure.
-Likely represents nonischemic myocardial injury in the setting of heart failure/hypoxemic respiratory insufficiency
History of AAA status post EVAR and PAD�stable
History of COPD with prior tobacco dependence�noted
Type 2 diabetes mellitus, defer to medicine. Goal normoglycemia.
PT/OT evaluation ongoing
DNR/DNI
Will follow with you from the periphery awaiting stabilization of renal function cleared please resume Lasix 40 mg p.o. twice daily once creatinine is stable. Please notify our service if any clinical change.
Discharge planning discussed with primary pending stabilization of creatinine
Original Note:
Today's Communication / Plan
-
hold lasix
follow Cr
assess for home O2
Impression / Plan
-
PCP: Dr. Cisse
Cardiology: Dr. Gill
Impression:
Presented
Heart failure with reduced ejection fraction decompensation
Abnormal cardiac troponin
CAD
s/p CABG PICHARDO to LAD, saphenous vein graft to first diagonal, hx Inferior KS 01/09/17
Ischemic cardiomyopathy most recent EF 37% by echo 11/22/22
Chronic HFrEF
Paroxysmal atrial fibrillation/flutter
Chronic warfarin OAC managed by [facility]
Chronic amiodarone therapy
s/p EVAR with type II endoleak 02/2017
CKD, stage III
COPD with long history of tobacco abuse
Chronic left bundle-branch block
Hypertension
Hyperlipidemia
PAD
Echo Aug 2017:�Dilated LV with EF 20-25% global hypokinesis, with mild MR/TR
Echo Feb 2017: Mildly dilated LV, EF 30-35%, inferior and inferolateral akinesis with global hypokinesis, mild LVH, Mild MR/TR, PASP 42-47 mmHg
Echo 11/22/22: EF 37%, global hypokinesis with akinetic inferoseptal segment, septal hypertrophy, no significant valvular disease
Echocardiogram 02/06/2024: LV ejection fraction estimated 30 to 35% with global hypokinesis and akinesis of the inferoseptal mckeon. Mild aortic stenosis with mean gradient 10 mmHg.
Echo 07/07/2024: EF 20 to 25%, global hypokinesis with akinesis of inferolateral, inferior, basal septal mckeon, mild concentric LVH, stage II diastolic dysfunction, MAC, trace MR, mild AAS with peak/mean gradient 16/8 mmHg, PAP 47 mmHg
Cardiac cath October 2016: RA 12, PA 52/20, Wedge 24. Dilated LV, EF 15-20%, global hypokinesis, calcified akinetic inferobasal wall, 70% ostial left main, 80% distal left main, 85% first diagonal stenosis, proximal circumflex 80% OM1 small, 90%, 100%
mid RCA occlusion
Plan:
-Presented with exacerbation of chronic systolic heart failure, felt to be secondary to dietary indiscretion.
-Cr uptrending, 2.3 on 07/11. lasix on hold. for 250cc fluid bolus per primary service. reassess Cr in AM. would plan to DC on po lasix 40mg BID when Cr stabilized
-BMP in 1 week upon DC
-assess for home O2, was not on prior to admission
-EF by echo this admission 20 to 25%. Continue GDMT with coreg, hydralazine, imdur. No JELENA/ARB/Arni/Aldactone/SGLT2 given baseline renal insufficiency.
-Patient has previously declined ICD therapies
-In sinus rhythm with known left bundle branch block. Continue Coreg, amiodarone
-TSH is low, may need to adjust Synthroid; defer to primary service
-Continue Eliquis anticoagulation
-Trop peaked at 0.134. Likely represents nonischemic myocardial injury in the setting of heart failure/hypoxemic respiratory insufficiency. No chest pain
-Case management and hospitalist are in contact with family regarding prehospital plan to move him to [place] with his daughter. was provided with name/phone number of lap welder in area
-OP cardiac follow up arranged
History of Present Illness:
I had the pleasure to meet your patient, her reassurance in room 407-2. Patient is known to [place] [facility] and follows with my colleague Dr. Gill. He has a past medical history of ischemic cardiomyopathy with chronic systolic heart failure
and an ejection fraction of 30-35% on echocardiogram January 2024. He also has mild aortic stenosis with mean transaortic gradient 10 mmHg with no significant mitral or tricuspid insufficiency and no evidence of pulmonary hypertension. He underwent
bypass surgery in 2016 after an inferior wall KS. Optimal medical therapy has been limited by renal insufficiency and patient preference. Apparently he has declined ICD therapy. He also has a history of an infrarenal abdominal aortic aneurysm
without rupture status post EVAR with type II endoleak 02/2017 and peripheral arterial disease with bilateral SFA disease/claudication followed by Dr. David Wilson. His most recent aortic abdominal surveillance ultrasound dated 10/03/2023 showed patent
aortobiiliac stent graft with residual aneurysm sac stable/slightly improved measurement 6.3 cm (AP) x6.1 cm (transverse) with no evidence for endoleak. Prior study measured 6.4 x 6.5 cm. He also has a history of paroxysmal atrial fibrillation
maintaining sinus rhythm on amiodarone and anticoagulated with Eliquis. He reports increasing shortness of breath over the last several weeks since [place]. He had been living with his brother and his who are recently transition to
inpatient care at a [facility] facility. He reports in the last couple weeks having some salt rich foods including soups and frozen meals and has noted increased lower extremity edema and weight gain. He denies chest pain or pressure. He
denies syncope or near syncope. He has been compliant with his medications including Lasix which he is taking 40 mg daily and alternating days taking additional 20 mg in the evening. His daughter who lives in [place] was planning to move him
into her house the day of his admission.
Progress Note - S[employer] Winder Hand
Subjective
Date of Service: July 11, 2024
reports no issues. denies current lightheadedness/dizziness.
Objective
Labs:
07/11/24 09:29
07/11/24 08:09
Labs
Hgb 10.1 g/dL (13.0-18.0) L 07/11/24 09:29
Hct 33.8 % (39.0-52.0) L 07/11/24 09:29
Plt Count 247 10^3/uL (130-400) 07/11/24 09:29
Sodium 134 mmol/L (135-145) L 07/11/24 08:09
Potassium 3.7 mmol/L (3.5-5.1) 07/11/24 08:09
BUN 34 mg/dl (9-20) H 07/11/24 08:09
Creatinine 2.3 mg/dL (0.7-1.3) H 07/11/24 08:09
Glucose 116 mg/dl (70-99) H 07/11/24 08:09
Vital Signs and I&O:
Vital Signs
Temp Pulse Resp BP Pulse Ox
97.9 F 56 18 139/58 96
07/11/24 06:57 07/11/24 07:34 07/11/24 07:34 07/11/24 06:57 07/11/24 07:34
Vital Signs
Temp Pulse Resp BP Pulse Ox
97.9 F 56 18 139/58 96
07/11/24 06:57 07/11/24 07:34 07/11/24 07:34 07/11/24 06:57 07/11/24 07:34
Intake & Output
07/09/24 07/10/24 07/11/24 07/12/24
07:59 07:59 07:59 07:59
Intake Total 480 / 480 0 / 0 480 / 480
Output Total 2900 / 2900 2350 / 2350 925 / 925
Balance -2420 / -2420 -2350 / -2350 -445 / -445
Physical Exam
Physical Exam
GEN: No distress, awake, alert, oriented x3. on supp O2
HEENT: supple, anicteric, mmm, eomi
LUNGS: CTA B/L, no wheezes
CV: Reg, S1/S2, 1/6 syst LSB
ABD: soft, BS+, NT/ND
EXT: No cyanosis, clubbing, edema
NEURO: Gross non-focal
SKIN: Warm, pink, dry. No rash
[2024-07-11] MEDS: NSS 250 IV (10:21)
[2024-07-11 11:10] VITALS: BP 114/52; BP 93/41; BP 94/45; PULSE 58; PULSE 61; PULSE 65
--- NOTE | 2024-07-11 11:34 | W.PN.HOSP.TC ---
Addendum entered and electronically signed by Parker Marti MD 07/12/24 12:27:
Discussed with daughter - July plan for d/c after establishing home O2 and repeated labs in AM if patient to cont to improve
Original Note:
Today's Communication/Plan
-
hydrate
follow Cr
Orthostatic VS
Assessment / Plan
Assessment / Plan
79yo M with PMHx of Afib on Eliquis, HLD. HTN, HFrEF, CAD, s/p EVAR, CKD, COPD, PAD came with SOB and hypoxia and managed for CHF. Echo showed significantly decreased EF to 25%. Hypoxia improved on diuresis, however patient developed HANY. Plan to
assess for home O2 when improved
A/P:
#HANY
most likely 2/2 aggressive diuresis
lightly hydrate and follow Cr
check orthostatic VS
Hold lasix
#Acute hypoxic insufficience 2/2 systolic CHF exacerbation
#Afib, paroxysmal
#Ischemic CM
#Atelctasis
Lasix IV completed.
Cardio follows
CT chest: moderate CHF with reactive mediastinal lymphadenopathy
Wean off O2
Incentive spirometry
#COPD, in mild exacerbation - resolved
Start inhaled ICS/LABA
Duobneb
#Ascending aortic dilation 3.8cm
outpatient monitoring with PCP
#Essential HTN
#PAD
#HLD
#HLD
#CKD stage 3
cont home meds
#hypothyroidism
Synthroid decreased
repeat TSH with PCP in 2-3 weeks
#Mild anemia
outpatient w/u with PCP advised
previously s/p eval by GI in 2022 for anemia with FOBT neg stool
DVT ppx Eliquis
DNR/DNI
I have spent at least 58min reviewing chart, test results, communication with consultants and direct patient care
Anticipated Discharge: 24 - 48 hours
Subjective/Interval History
-
Date of Service: July 11, 2024
Objective Data
-
Labs:
Laboratory Results
07/11/24 07/11/24
08:09 09:29
WBC 7.3
Hgb 10.1 L
Hct 33.8 L
Plt Count 247
Sodium 134 L
Potassium 3.7
Chloride 83 L
Carbon Dioxide 37 H
BUN 34 H
Creatinine 2.3 H
Glucose 116 H
Calcium 8.9
Total Bilirubin 0.9
AST 18
ALT 12
Alkaline Phosphatase 78
Vital Signs:
Vital Signs
Temp Pulse Resp BP Pulse Ox
97.9 F 56 18 139/58 96
07/11/24 06:57 07/11/24 07:34 07/11/24 07:34 07/11/24 06:57 07/11/24 07:34
I&O
07/10/24 07/11/24 07/12/24
06:59 06:59 06:59
Intake Total 0 / 0 480 / 480
Output Total 2350 / 2350 925 / 925
Balance -2350 / -2350 -445 / -445
Review of Systems
-
History Source: Patient
All other systems: Reviewed and negative
Physical Exam
-
General: No Apparent Distress
Respiratory: Clear to Auscultation
Cardiac: Regular Rhythm
GI: Soft, Nontender and Nondistended
Skin: Warm and Dry
Neuro: Awake, Alert, Oriented and AO x 3
Psych: Calm
[2024-07-11 11:53] LABS: Glucose - Point of Care 208 mg/dl (70-99)
[2024-07-11] MEDS: NOVOLOG FLEXPEN-LOW RESISTANCE 2 UNITS SC ×2 (12:05→16:42)
[2024-07-11 15:47] LABS: Free T4 4.01 ng/dl (0.78-2.19)
[2024-07-11 15:57] VITALS: BP 117/43
[2024-07-11 16:28] LABS: Glucose - Point of Care 239 mg/dl (70-99)
[2024-07-11] MEDS: LIPITOR 40 MG PO (20:57)
[2024-07-11] MEDS: PACERONE 100 MG PO (20:58)
[2024-07-11 21:49] LABS: Glucose - Point of Care 127 mg/dl (70-99)
[2024-07-11 22:30] VITALS: PULSE 2; PULSE 80
[2024-07-11 23:30] VITALS: BP 132/55
--- NOTE | 2024-07-12 01:15 | PTCARENOTE ---
Pt unable to continue using BiPAP for the night. Respiratory aware. Patient placed on 3L O2 NC. Call del[facility]ruz is within reach.
[2024-07-12 06:00] VITALS: BMI 24.7
[2024-07-12] MEDS: SYNTHROID 25 MCG PO (06:18)
[2024-07-12 07:05] VITALS: BP 105/51; BP 126/48; BP 144/63; PULSE 59; PULSE 61; PULSE 64
[2024-07-12 07:17] LABS: Glucose - Point of Care 70 mg/dl (70-99)
[2024-07-12 07:19] LABS: Blood Urea Nitrogen 33 mg/dl (9-20); Calcium 8.8 mg/dl (8.4-10.2); Chloride 84 mmol/L (98-107); Estimated Creatinine Clearance 29 ml/min; Glucose 62 mg/dl (70-99); Potassium 3.7 mmol/L (3.5-5.1); Sodium 134 mmol/L (135-145); eGFR 31.04
[2024-07-12 07:30] LABS: Carbon Dioxide 34 mmol/L (22-30)
[2024-07-12] MEDS: NOVOLOG FLEXPEN-LOW RESISTANCE SC ×3 (07:46→16:23)
[2024-07-12] MEDS: SYMBICORT 160/4.5 MCG INHALER 2 PUFF INH ×2 (08:26→21:13)
[2024-07-12] MEDS: IMDUR (EXTENDED RELEASE) 30 MG PO (08:48)
[2024-07-12] MEDS: COREG PO (08:48)
[2024-07-12] MEDS: APRESOLINE 50 MG PO ×2 (08:48→20:42)
[2024-07-12] MEDS: NORVASC 5 MG PO ×2 (08:49→20:43)
[2024-07-12] MEDS: PROTONIX 40 MG PO (08:49)
[2024-07-12] MEDS: ELIQUIS 2.5 MG PO ×2 (08:49→20:43)
[2024-07-12 11:46] LABS: Glucose - Point of Care 169 mg/dl (70-99)
--- NOTE | 2024-07-12 12:14 | W.PN.HOSP.TC ---
Today's Communication/Plan
-
Home O2 assessment to repat
cont to hold Lasix - Cr improving
Attempted to call daughter - reached
Assessment / Plan
Assessment / Plan
79yo M with PMHx of Afib on Eliquis, HLD. HTN, HFrEF, CAD, s/p EVAR, CKD, COPD, PAD came with SOB and hypoxia and managed for CHF. Echo showed significantly decreased EF to 25%. Hypoxia improved on diuresis, however patient developed HANY. On home O2
assessment developed presyncope on 07/10/24 with HANY on labs, probably 2/2 oversiuresis.
A/P:
#HANY
most likely 2/2 aggressive diuresis
lightly hydrate and follow Cr
orthostatic VS positive - follow daily while holding lasix
#Acute hypoxic insufficience 2/2 systolic CHF exacerbation
#Afib, paroxysmal
#Ischemic CM
#Atelctasis
Lasix IV completed.
Cardio follows: outpatient follow up, since patient will move to her daughters area - recommended Dr. Desmond Leonard,
CT chest: moderate CHF with reactive mediastinal lymphadenopathy
Wean off O2
Incentive spirometry
#COPD, in mild exacerbation - resolved
Start inhaled ICS/LABA
Duobneb
#Ascending aortic dilation 3.8cm
outpatient monitoring with PCP
#Essential HTN
#PAD
#HLD
#HLD
#CKD stage 3
cont home meds
#hypothyroidism
Synthroid decreased
repeat TSH with PCP in 2-3 weeks
#Mild anemia
outpatient w/u with PCP advised
previously s/p eval by GI in 2022 for anemia with FOBT neg stool
DVT ppx Eliquis
DNR/DNI
I have spent at least 58min reviewing chart, test results, communication with consultants and direct patient care
Anticipated Discharge: 24 - 48 hours
Subjective/Interval History
-
Date of Service: July 12, 2024
Objective Data
-
Labs:
Laboratory Results
07/12/24
06:23
Sodium 134 L
Potassium 3.7
Chloride 84 L
Carbon Dioxide 34 H
BUN 33 H
Creatinine 2.1 H
Glucose 62 L
Calcium 8.8
Vital Signs:
Vital Signs
Temp Pulse Resp BP Pulse Ox
97.8 F 59 16 144/63 95
07/12/24 07:05 07/12/24 08:49 07/12/24 08:32 07/12/24 08:49 07/12/24 11:42
I&O
07/11/24 07/12/24 07/13/24
06:59 06:59 06:59
Intake Total 480 / 480 550 / 550 240 / 240
Output Total 925 / 925 480 / 480 1300 / 1300
Balance -445 / -445 70 / 70 -1060 / -1060
Review of Systems
-
History Source: Patient
All other systems: Reviewed and negative
Physical Exam
-
General: No Apparent Distress
HEENT: Normocephalic
Respiratory: Clear to Auscultation
GI: Soft, Nontender and Nondistended
Musculoskeletal: No Clubbing, No Cyanosis and No Edema
Neuro: Awake, Alert, Oriented and AO x 3
Psych: Calm
[2024-07-12 13:45] VITALS: BP 121/59; PULSE 60; O2SAT 94
[2024-07-12 15:31] VITALS: BP 137/56
[2024-07-12 16:20] LABS: Glucose - Point of Care 96 mg/dl (70-99)
[2024-07-12 20:17] VITALS: BP 133/54
[2024-07-12] MEDS: PACERONE 100 MG PO (20:42)
[2024-07-12] MEDS: COREG 6.25 MG PO (20:42)
[2024-07-12] MEDS: LIPITOR 40 MG PO (20:43)
[2024-07-12 21:13] LABS: Glucose - Point of Care 202 mg/dl (70-99)
[2024-07-12 23:15] VITALS: BP 136/59
[2024-07-13] MEDS: SYNTHROID 25 MCG PO (05:06)
[2024-07-13 06:00] VITALS: BMI 24.7
[2024-07-13 07:00] VITALS: BP 102/43; BP 112/45; BP 114/43; BP 117/43; PULSE 61; PULSE 65; PULSE 73
[2024-07-13 07:14] LABS: Glucose - Point of Care 109 mg/dl (70-99)
[2024-07-13 07:14] LABS: Blood Urea Nitrogen 33 mg/dl (9-20); Calcium 8.6 mg/dl (8.4-10.2); Chloride 85 mmol/L (98-107); Estimated Creatinine Clearance 29 ml/min; Glucose 105 mg/dl (70-99); Potassium 3.5 mmol/L (3.5-5.1); Sodium 133 mmol/L (135-145); eGFR 31.04
[2024-07-13 07:25] LABS: Carbon Dioxide 35 mmol/L (22-30)
[2024-07-13] MEDS: SYMBICORT 160/4.5 MCG INHALER 2 PUFF INH ×2 (08:09→19:33)
[2024-07-13] MEDS: NOVOLOG FLEXPEN-LOW RESISTANCE SC ×3 (08:18→16:19)
[2024-07-13] MEDS: APRESOLINE PO (08:28)
[2024-07-13] MEDS: COREG PO (08:28)
[2024-07-13] MEDS: NORVASC 5 MG PO ×2 (08:28→21:57)
[2024-07-13] MEDS: IMDUR (EXTENDED RELEASE) 30 MG PO (08:29)
[2024-07-13] MEDS: ELIQUIS 2.5 MG PO ×2 (08:29→21:57)
[2024-07-13] MEDS: PROTONIX 40 MG PO (08:29)
[2024-07-13 11:55] LABS: Glucose - Point of Care 185 mg/dl (70-99)
--- NOTE | 2024-07-13 12:11 | W.PN.HOSP.TC ---
Today's Communication/Plan
-
Card for Lasix suggestion
BMP in AM
CM for home O2
Assessment / Plan
Assessment / Plan
79yo M with PMHx of Afib on Eliquis, HLD. HTN, HFrEF, CAD, s/p EVAR, CKD, COPD, PAD came with SOB and hypoxia and managed for CHF. Echo showed significantly decreased EF to 25%. Hypoxia improved on diuresis, however patient developed HANY. On home O2
assessment developed presyncope on 07/10/24 with HANY on labs, probably 2/2 overdiuresis. Cr remains elevated with no weight gain while off Lasix. CM arranging 4L home O2 as patient has assessment by respiratory.
Patient is in need of oxygen at 4 liters/minute via nasal cannula continuously due to pulse oximetry of 78% on room air at rest. Oxygen will help to improve hypoxemia. Patient is mobile within the home. DuoNeb therapy has been tried and is
ineffective in treating hypoxemia related symptoms. Oxygen is needed to improve symptoms.
A/P:
#HANY
most likely 2/2 aggressive diuresis
lightly hydrate and follow Cr
orthostatic VS positive - follow daily while holding lasix
Cr remains elevated with no weight gain off Lasix - cardiology to reeval
#Acute hypoxic insufficience 2/2 systolic CHF exacerbation
#Afib, paroxysmal
#Ischemic CM
#Atelctasis
Lasix IV completed.
Cardio follows: outpatient follow up, since patient will move to her [place] - recommended Dr. Desmond Leonard,
CT chest: moderate CHF with reactive mediastinal lymphadenopathy
Wean off O2
Incentive spirometry
#COPD, in mild exacerbation - resolved
Start inhaled ICS/LABA
Duobneb
#Ascending aortic dilation 3.8cm
outpatient monitoring with PCP
#Essential HTN
#PAD
#HLD
#HLD
#CKD stage 3
cont home meds
#hypothyroidism
Synthroid decreased
repeat TSH with PCP in 2-3 weeks
#Mild anemia
outpatient w/u with PCP advised
previously s/p eval by GI in 2022 for anemia with FOBT neg stool
DVT ppx Eliquis
DNR/DNI
I have spent at least 38min reviewing chart, test results, communication with consultants and direct patient care
Anticipated Discharge: Within 24 hours
Subjective/Interval History
-
Date of Service: July 13, 2024
Objective Data
-
Labs:
Laboratory Results
07/13/24
06:31
Sodium 133 L
Potassium 3.5
Chloride 85 L
Carbon Dioxide 35 H
BUN 33 H
Creatinine 2.1 H
Glucose 105 H
Calcium 8.6
Vital Signs:
Vital Signs
Temp Pulse Resp BP Pulse Ox
97.7 F 59 16 114/43 95
07/13/24 07:00 07/13/24 08:28 07/13/24 08:19 07/13/24 08:28 07/13/24 11:50
I&O
07/12/24 07/13/24 07/14/24
06:59 06:59 06:59
Intake Total 550 / 550 840 / 840 300 / 300
Output Total 480 / 480 1850 / 1850 625 / 625
Balance 70 / 70 -1010 / -1010 -325 / -325
Review of Systems
-
History Source: Patient
All other systems: Reviewed and negative
Physical Exam
-
General: Comfortable
HEENT: Normocephalic
Respiratory: Clear to Auscultation
Cardiac: Regular Rhythm
GI: Soft, Nontender and Nondistended
Musculoskeletal: No Clubbing, No Cyanosis and No Edema
Skin: Warm
Neuro: Awake, Alert and Oriented
[2024-07-13 15:00] VITALS: BP 153/64
--- NOTE | 2024-07-13 15:29 | W.PN.CARDCBS ---
Today's Communication / Plan
-
Resume oral diuretic
Outpatient follow-up in 1 to 2 weeks with JUSTIN in our office
Reassess renal function in a.m., BMP 1 week
Impression / Plan
-
PCP: Dr. Cisse
Cardiology: Dr. Gill
Impression:
Presented
Heart failure with reduced ejection fraction decompensation
Abnormal cardiac troponin
CAD
s/p CABG PICHARDO to LAD, saphenous vein graft to first diagonal, hx Inferior SC 01/09/17
Ischemic cardiomyopathy most recent EF 37% by echo 11/22/22
Chronic HFrEF
Paroxysmal atrial fibrillation/flutter
Chronic warfarin OAC managed by [facility]
Chronic amiodarone therapy
s/p EVAR with type II endoleak 02/2017
CKD, stage III
COPD with long history of tobacco abuse
Chronic left bundle-branch block
Hypertension
Hyperlipidemia
PAD
Echo Aug 2017:�Dilated LV with EF 20-25% global hypokinesis, with mild MR/TR
Echo Feb 2017: Mildly dilated LV, EF 30-35%, inferior and inferolateral akinesis with global hypokinesis, mild LVH, Mild MR/TR, PASP 42-47 mmHg
Echo 11/22/22: EF 37%, global hypokinesis with akinetic inferoseptal segment, septal hypertrophy, no significant valvular disease
Echocardiogram 02/06/2024: LV ejection fraction estimated 30 to 35% with global hypokinesis and akinesis of the inferoseptal mckeon. Mild aortic stenosis with mean gradient 10 mmHg.
Echo 07/07/2024: EF 20 to 25%, global hypokinesis with akinesis of inferolateral, inferior, basal septal mckeon, mild concentric LVH, stage II diastolic dysfunction, MAC, trace MR, mild AAS with peak/mean gradient 16/8 mmHg, PAP 47 mmHg
Cardiac cath October 2016: RA 12, PA 52/20, Wedge 24. Dilated LV, EF 15-20%, global hypokinesis, calcified akinetic inferobasal wall, 70% ostial left main, 80% distal left main, 85% first diagonal stenosis, proximal circumflex 80% OM1 small, 90%, 100%
mid RCA occlusion
Plan:
-Presented with exacerbation of chronic systolic heart failure, felt to be secondary to dietary indiscretion.
-Cr uptrending, 2.3 on 07/11, now 2.1 on 07/13. lasix on hold. for 250cc fluid bolus per primary service. Resume oral diuretic with stable CR and would plan to DC on po lasix 40mg BID when Cr stabilized. Will need follow-up in 1-2 weeks with JUSTIN and
repeat BMP in 1 week
-BMP in 1 week upon DC
-assess for home O2, was not on prior to admission
-EF by echo this admission 20 to 25%. Continue GDMT with coreg, hydralazine, imdur. No JELENA/ARB/Arni/Aldactone/SGLT2 given baseline renal insufficiency.
-Patient has previously declined ICD therapies
-In sinus rhythm with known left bundle branch block. Continue Coreg, amiodarone
-TSH is low, may need to adjust Synthroid; defer to primary service
-Continue Eliquis anticoagulation
-Trop peaked at 0.134. Likely represents nonischemic myocardial injury in the setting of heart failure/hypoxemic respiratory insufficiency. No chest pain
-Case management and hospitalist are in contact with family regarding prehospital plan to move him to [place] with his daughter. was provided with name/phone number of telecommunications field technician in area
-OP cardiac follow up arranged
History of Present Illness:
I had the pleasure to meet your patient, her reassurance in room 407-2. Patient is known to [facility] and follows with my colleague Dr. Gill. He has a past medical history of ischemic cardiomyopathy with chronic systolic heart failure
and an ejection fraction of 30-35% on echocardiogram January 2024. He also has mild aortic stenosis with mean transaortic gradient 10 mmHg with no significant mitral or tricuspid insufficiency and no evidence of pulmonary hypertension. He underwent
bypass surgery in 2016 after an inferior wall SC. Optimal medical therapy has been limited by renal insufficiency and patient preference. Apparently he has declined ICD therapy. He also has a history of an infrarenal abdominal aortic aneurysm
without rupture status post EVAR with type II endoleak 02/2017 and peripheral arterial disease with bilateral SFA disease/claudication followed by Dr. David Wilson. His most recent aortic abdominal surveillance ultrasound dated 10/03/2023 showed patent
aortobiiliac stent graft with residual aneurysm sac stable/slightly improved measurement 6.3 cm (AP) x6.1 cm (transverse) with no evidence for endoleak. Prior study measured 6.4 x 6.5 cm. He also has a history of paroxysmal atrial fibrillation
maintaining sinus rhythm on amiodarone and anticoagulated with Eliquis. He reports increasing shortness of breath over the last several weeks since [place]. He had been living with his brother and his who are recently transition to
[facility]. He reports in the last couple weeks having some salt rich foods including soups and frozen meals and has noted increased lower extremity edema and weight gain. He denies chest pain or pressure. He
denies syncope or near syncope. He has been compliant with his medications including Lasix which he is taking 40 mg daily and alternating days taking additional 20 mg in the evening. His daughter who lives in [place] was planning to move him
into her house the day of his admission.
Progress Note - Delivery Technician
Subjective
Date of Service: July 13, 2024
Patient seen and examined. No acute events overnight. Patient resting comfortably in bed. Patient denies any chest pain, shortness of breath, palpitations, weakness. Patient off nasal cannula supplement oxygen. Creatinine remained stable. No
other complaints at this time.
Objective
Labs:
07/11/24 09:29
07/13/24 06:31
Labs
Hgb 10.1 g/dL (13.0-18.0) L 07/11/24 09:29
Hct 33.8 % (39.0-52.0) L 07/11/24 09:29
Plt Count 247 10^3/uL (130-400) 07/11/24 09:29
Sodium 133 mmol/L (135-145) L 07/13/24 06:31
Potassium 3.5 mmol/L (3.5-5.1) 07/13/24 06:31
BUN 33 mg/dl (9-20) H 07/13/24 06:31
Creatinine 2.1 mg/dL (0.7-1.3) H 07/13/24 06:31
Glucose 105 mg/dl (70-99) H 07/13/24 06:31
Vital Signs and I&O:
Vital Signs
Temp Pulse Resp BP Pulse Ox
97.8 F 56 18 153/64 95
07/13/24 15:00 07/13/24 15:00 07/13/24 15:00 07/13/24 15:00 07/13/24 15:00
Vital Signs
Temp Pulse Resp BP Pulse Ox
97.8 F 56 18 153/64 95
07/13/24 15:00 07/13/24 15:00 07/13/24 15:00 07/13/24 15:00 07/13/24 15:00
Intake & Output
07/11/24 07/12/24 07/13/24 07/14/24
06:59 06:59 06:59 06:59
Intake Total 480 / 480 550 / 550 840 / 840 300 / 300
Output Total 925 / 925 480 / 480 1850 / 1850 825 / 825
Balance -445 / -445 70 / 70 -1010 / -1010 -525 / -525
Physical Exam
Physical Exam
GEN: No distress, awake, alert, oriented x3.
HEENT: supple, anicteric, mmm, eomi
LUNGS: CTA B/L, faint crackle, no wheezes
CV: Reg, S1/S2, 1/6 syst LSB
ABD: soft, BS+, NT/ND
EXT: No cyanosis, clubbing, edema
NEURO: Gross non-focal
SKIN: Warm, pink, dry. No rash
[2024-07-13] MEDS: LASIX 40 MG PO (16:09)
[2024-07-13 16:21] LABS: Glucose - Point of Care 143 mg/dl (70-99)
[2024-07-13 21:12] VITALS: BP 145/58
[2024-07-13 21:17] LABS: Glucose - Point of Care 247 mg/dl (70-99)
[2024-07-13] MEDS: PACERONE 100 MG PO (21:56)
[2024-07-13] MEDS: APRESOLINE 50 MG PO (21:56)
[2024-07-13] MEDS: COREG 6.25 MG PO (21:56)
[2024-07-13] MEDS: LIPITOR 40 MG PO (21:57)
[2024-07-13 22:45] VITALS: BP 123/52
[2024-07-14] MEDS: SYNTHROID 25 MCG PO (06:00)
[2024-07-14 07:05] VITALS: BP 108/45; BP 122/50; BP 135/59; PULSE 60; PULSE 61; PULSE 64
[2024-07-14 07:09] LABS: Glucose - Point of Care 153 mg/dl (70-99)
--- NOTE | 2024-07-14 07:18 | W.PN.HOSP.TC ---
Addendum entered and electronically signed by Willam Dumont MD 07/14/24 13:33:
Per case management, patient's daughter said she cannot come to warehouse order picker patient today, she can come warehouse order picker the daughter tomorrow morning.
Addendum entered and electronically signed by Willam Dumont MD 07/14/24 13:10:
Per respiratory therapy today, home oxygen assessment showed that patient does not require oxygen. He maintained an oxygen saturation of 91% during ambulation. He walked approximately 100 feet while using his walker and had minimal exertional
dyspnea.
Addendum entered and electronically signed by Willam Dumont MD 07/14/24 12:44:
Based on OT note, patient needs home oxygen. Case management working on it and possible VN for home care.
Original Note:
Today's Communication/Plan
-
Discharge today
Assessment / Plan
Assessment / Plan
Physical Exam
General: Comfortable
HEENT: Normocephalic
Respiratory: Clear to Auscultation Bilaterally. ON ROOM AIR.
Cardiac: Regular Rhythm. S1 and S2.
GI: Soft, Nontender and Nondistended. Positive bowel sounds.
Musculoskeletal: No Cyanosis and No Edema
Skin: Warm. Dry.
Neuro: Awake, Alert and Oriented
Assessment/Plan
79yo M with PMHx of Afib on Eliquis, HLD. HTN, HFrEF, CAD, s/p EVAR, CKD, COPD, PAD came with SOB and hypoxia and managed for CHF. Echo showed significantly decreased EF to 25%. Hypoxia improved on diuresis, however patient developed HANY. On home O2
assessment developed presyncope on 07/10/24 with HANY on labs, probably 2/2 overdiuresis. Cr remains elevated with no weight gain while off Lasix. CM arranging 4L home O2 as patient has assessment by respiratory.
Patient is in need of oxygen at 4 liters/minute via nasal cannula continuously due to pulse oximetry of 78% on room air at rest. Oxygen will help to improve hypoxemia. Patient is mobile within the home. DuoNeb therapy has been tried and is
ineffective in treating hypoxemia related symptoms. Oxygen is needed to improve symptoms.
#HANY - IMPROVED
most likely secondary to aggressive diuresis -- diuresis was held, but now PO diuresis resumed
received hydration
orthostatic vital signs positive - follow daily
Cr remains elevated with no weight gain off Lasix - cardiology to re-evaluate
#Acute hypoxic insufficience 2/2 systolic CHF exacerbation
#Afib, paroxysmal
#Ischemic CM
#Atelectasis
Lasix IV completed.
Cardio follows: outpatient follow up, since patient will move to her [facility] area - recommended Dr. Desmond Leonard,
CT chest: moderate CHF with reactive mediastinal lymphadenopathy
Weaned off O2 and now on room air, check home oxygen assessment prior to discharge
Incentive spirometry
#COPD, in mild exacerbation - resolved
New Symbicort on discharge
Duobneb
#Ascending aortic dilation 3.8cm
outpatient monitoring with PCP
#Essential HTN
#PAD
#HLD
#HLD
#CKD stage 3
cont home meds
#hypothyroidism
Synthroid decreased
repeat TSH with PCP in 2-3 weeks
#Mild anemia
outpatient w/u with PCP advised
previously s/p eval by GI in 2022 for anemia with FOBT neg stool
DVT Prophylaxis: Eliquis
DNR/DNI
I called patient's daughter July today, all questions and concerns were answered to satisfaction. July is in agreement with patient being discharged today.
More than 30 minutes spent in discharge including
Final examination of the patient
Summarizing hospital stay
Instructions for continuing care to all relevant caregivers
Preparation of discharge records, prescriptions, and referral forms
Total time spent (in minutes): 42
Anticipated Discharge: Today
Subjective/Interval History
-
Date of Service: July 14, 2024
Patient was seen and examined. He denied any chest pain, shortness of breath or any other symptoms or complaints.
Objective Data
-
Labs:
Laboratory Results
07/14/24
06:00
Sodium Pending
Potassium Pending
Chloride Pending
Carbon Dioxide Pending
BUN Pending
Creatinine Pending
Glucose Pending
Calcium Pending
Vital Signs:
Vital Signs
Temp Pulse Resp BP Pulse Ox
98.4 F 60 18 123/52 93
07/13/24 22:45 07/13/24 22:45 07/13/24 22:45 07/13/24 22:45 07/13/24 22:45
I&O
07/13/24 07/14/24 07/15/24
06:59 06:59 06:59
Intake Total 840 / 840 540 / 540
Output Total 1850 / 1850 1625 / 1625
Balance -1010 / -1010 -1085 / -1085
[2024-07-14] MEDS: SYMBICORT 160/4.5 MCG INHALER 2 PUFF INH ×2 (07:43→20:31)
[2024-07-14 08:42] LABS: Blood Urea Nitrogen 31 mg/dl (9-20); Calcium 8.7 mg/dl (8.4-10.2); Carbon Dioxide 39 mmol/L (22-30); Chloride 86 mmol/L (98-107); Estimated Creatinine Clearance 31 ml/min; Glucose 143 mg/dl (70-99); Potassium 3.6 mmol/L (3.5-5.1); Sodium 133 mmol/L (135-145); eGFR 32.91
[2024-07-14] MEDS: PROTONIX 40 MG PO (08:52)
[2024-07-14] MEDS: NORVASC 5 MG PO ×2 (08:52→20:10)
[2024-07-14] MEDS: APRESOLINE 50 MG PO ×2 (08:52→20:10)
[2024-07-14] MEDS: IMDUR (EXTENDED RELEASE) 30 MG PO (08:52)
[2024-07-14] MEDS: COREG 6.25 MG PO ×2 (08:52→20:11)
[2024-07-14] MEDS: NOVOLOG FLEXPEN-LOW RESISTANCE 1 UNITS SC (08:53)
[2024-07-14] MEDS: ELIQUIS 2.5 MG PO ×2 (08:53→20:10)
[2024-07-14] MEDS: LASIX 40 MG PO ×2 (08:53→15:44)
[2024-07-14 10:37] VITALS: BP 131/58; PULSE 54; O2SAT 93
[2024-07-14 11:37] LABS: Glucose - Point of Care 303 mg/dl (70-99)
[2024-07-14] MEDS: NOVOLOG FLEXPEN-LOW RESISTANCE 4 UNITS SC (12:09)
--- NOTE | 2024-07-14 13:29 | CM ---
MIRANDA contacted pt's POA, Annmarie Lema, to make her aware of plan for discharge today. She had called the unit several times earlier today, but advised that nobody would tell her if he was ready to leave or not, therefore she cannot come to take
him home until tomorrow.
We discussed home care services and Annmarie is agreeable to [facility]. Referral placed in [facility].
Plan: Discharge to home tomorrow with Darren [facility] of [facility].
Darren
[2024-07-14 14:47] VITALS: BP 125/55
[2024-07-14 15:23] VITALS: BP 136/46; PULSE 55; O2SAT 91
[2024-07-14 15:29] VITALS: BP 125/55
--- NOTE | 2024-07-14 16:16 | W.PN.UPDATE ---
Update Note
Progress Note Update
Cr improved and stable.
Cont PO lasix
Outpt cardiac follow up arranged.
Please recall if needed.
[2024-07-14 16:24] LABS: Glucose - Point of Care 132 mg/dl (70-99)
[2024-07-14] MEDS: NOVOLOG FLEXPEN-LOW RESISTANCE SC (16:24)
[2024-07-14 16:29] LABS: Glucose - Point of Care 128 mg/dl (70-99)
[2024-07-14] MEDS: PACERONE 100 MG PO (20:11)
[2024-07-14] MEDS: LIPITOR 40 MG PO (20:11)
[2024-07-14 21:39] LABS: Glucose - Point of Care 213 mg/dl (70-99)
[2024-07-14 22:55] VITALS: BP 119/56
[2024-07-15] MEDS: SYNTHROID 25 MCG PO (05:32)
[2024-07-15 05:47] VITALS: BMI 24.3
[2024-07-15 07:35] VITALS: BP 119/46
[2024-07-15] MEDS: SYMBICORT 160/4.5 MCG INHALER INH (08:14)
[2024-07-15 08:20] LABS: Glucose - Point of Care 139 mg/dl (70-99)
[2024-07-15] MEDS: NOVOLOG FLEXPEN-LOW RESISTANCE SC ×2 (08:57→13:07)
[2024-07-15] MEDS: PROTONIX 40 MG PO (09:08)
[2024-07-15] MEDS: LASIX 40 MG PO (09:08)
[2024-07-15] MEDS: ELIQUIS 2.5 MG PO (09:08)
[2024-07-15] MEDS: IMDUR (EXTENDED RELEASE) 30 MG PO (09:09)
[2024-07-15] MEDS: NORVASC 5 MG PO (09:09)
[2024-07-15] MEDS: COREG 6.25 MG PO (09:09)
[2024-07-15] MEDS: APRESOLINE 50 MG PO (09:09)
--- NOTE | 2024-07-15 10:30 | W.PN.HOSP.TC ---
Today's Communication/Plan
-
Discharge today
Assessment / Plan
Assessment / Plan
Physical Exam
General: Comfortable
HEENT: Normocephalic
Respiratory: Clear to Auscultation Bilaterally. ON ROOM AIR.
Cardiac: Regular Rhythm. S1 and S2.
GI: Soft, Nontender and Nondistended. Positive bowel sounds.
Musculoskeletal: No Cyanosis and No Edema
Skin: Warm. Dry.
Neuro: Awake, Alert and Oriented
Assessment/Plan
79yo M with PMHx of Afib on Eliquis, HLD. HTN, HFrEF, CAD, s/p EVAR, CKD, COPD, PAD came with SOB and hypoxia and managed for CHF. Echo showed significantly decreased EF to 25%. Hypoxia improved on diuresis, however patient developed HANY. On home O2
assessment developed presyncope on 07/10/24 with HANY on labs, probably 2/2 overdiuresis. Cr remains elevated with no weight gain while off Lasix. CM arranging 4L home O2 as patient has assessment by respiratory.
Patient is in need of oxygen at 4 liters/minute via nasal cannula continuously due to pulse oximetry of 78% on room air at rest. Oxygen will help to improve hypoxemia. Patient is mobile within the home. DuoNeb therapy has been tried and is
ineffective in treating hypoxemia related symptoms. Oxygen is needed to improve symptoms.
#HANY - IMPROVED
most likely secondary to aggressive diuresis -- diuresis was held, but now PO diuresis resumed
received hydration
orthostatic vital signs positive - follow daily
Cr remains elevated with no weight gain off Lasix - cardiology to re-evaluate
#Acute hypoxic insufficience 2/2 systolic CHF exacerbation
#Afib, paroxysmal
#Ischemic CM
#Atelectasis
Lasix IV completed.
Cardio follows: outpatient follow up, since patient will move to her [facility] area - recommended Dr. Desmond Leonard,
CT chest: moderate CHF with reactive mediastinal lymphadenopathy
Weaned off O2 and now on room air, based on home oxygen assessment, patient does not require oxygen; he maintained an oxygen saturation of 91% during ambulation; he walked approximately 100 feet while using his walker and had minimal exertional
dyspnea.
Incentive spirometry
#COPD, in mild exacerbation - resolved
New Symbicort on discharge
Duobneb
#Ascending aortic dilation 3.8cm
outpatient monitoring with PCP
#Essential HTN
#PAD
#HLD
#HLD
#CKD stage 3
cont home meds
#hypothyroidism
Synthroid decreased
repeat TSH with PCP in 2-3 weeks
#Mild anemia
outpatient w/u with PCP advised
previously s/p eval by GI in 2022 for anemia with FOBT neg stool
DVT Prophylaxis: Eliquis
DNR/DNI
I called patient's daughter July on 07/15/24, all questions and concerns were answered to satisfaction.
More than 30 minutes spent in discharge including
Final examination of the patient
Summarizing hospital stay
Instructions for continuing care to all relevant caregivers
Preparation of discharge records, prescriptions, and referral forms
Total time spent (in minutes): 40
Anticipated Discharge: Today
Subjective/Interval History
-
Date of Service: July 15, 2024
Patient was seen and examined. He denied any chest pain, shortness of breath or any other complaints.
Objective Data
-
Vital Signs:
Vital Signs
Temp Pulse Resp BP Pulse Ox
98.1 F 63 22 119/46 90
07/15/24 07:35 07/15/24 09:09 07/15/24 07:35 07/15/24 09:09 07/15/24 07:35
I&O
07/14/24 07/15/24 07/16/24
06:59 06:59 06:59
Intake Total 540 / 540 240 / 240
Output Total 1625 / 1625 795 / 795
Balance -1085 / -1085 -555 / -555
--- NOTE | 2024-07-15 10:38 | W.HF.CON ---
Heart Failure
- LV Function
Left ventricular function study result: LV Ejection fraction </= 35%
Ejection Fraction Percentage: 20-25
- ARNI
Patient already on ARNI: No
Heart Failure ARNI Contraindication: Acute Renal Failure
- ACEI/ARB
Patient already on ACEI/ARB: No
Heart Failure ACEI/ARB Contraindication: Acute Renal Failure
- Beta Joan
Patient already on Evidence Based Beta Joan: Yes
- Mineralocorticord Receptor Antagonist
Patient already on MRA: No
Heart Failure MRA Contraindication: Acute Renal Insufficiency
- SGLT-2 Inhibitor
Patient already on SGLT-2 Inhibitor: No
Heart Failure SGLT-2 Inhibitor Contraindication: Patient Refusal
- Afib Anticoagulation
Patient already on Anticoagulation for Afib: Yes
- NYHA CHF Classification
NYHA CHF Classification Level: Class III - Symptoms w/ min exertion, interferes w/ nml daily activity
- ACC/AHA Stage
ACC/AHA Stage: Stage C: Symptomatic Heart Failure
--- NOTE | 2024-07-15 12:13 | CM ---
MIRANDA met with Surya and his family today to discuss discharge plans. [facility] has accepted for PT, OT and RN.
Plan: Discharge to home with [facility]. Pt's daughter providing transport.
[facility]
[2024-07-15 12:19] LABS: Glucose - Point of Care 270 mg/dl (70-99)
[2024-07-15 12:34] VITALS: BP 122/44
== END 2024-07-15 13:00 | disposition home health service (06) | DRG 291 ==
LOC: 4 EAST ACU 18:43
PROVIDERS: Internal Medicine; Physician Assistant Medical; Registered Nurse; ADMITTING PHYSICIAN Internal Medicine; ATTENDING PHYSICIAN Hospitalist; CONSULT PHYSICIAN Internal Medicine Cardiovascular Disease; EMERGENCY PHYSICIAN Student in an Organized Health Care Education/Training Program; FAMILY PHYSICIAN Internal Medicine
DX: I13.0 Hypertensive heart and chronic kidney disease with heart failure and stage 1 through stage 4 chronic kidney disease, or unspecified chronic kidney disease (principal); I50.23 Acute on chronic systolic (congestive) heart failure; J18.9 Pneumonia, unspecified organism; I48.92 Unspecified atrial flutter; J44.0 Chronic obstructive pulmonary disease with (acute) lower respiratory infection; N17.9 Acute kidney failure, unspecified; J98.11 Atelectasis; Z87.891 Personal history of nicotine dependence; R09.02 Hypoxemia; R06.89 Other abnormalities of breathing; I25.10 Atherosclerotic heart disease of native coronary artery without angina pectoris; Z95.1 Presence of aortocoronary bypass graft; I48.0 Paroxysmal atrial fibrillation; Z79.01 Long term (current) use of anticoagulants; N18.32 Chronic kidney disease, stage 3b; E11.22 Type 2 diabetes mellitus with diabetic chronic kidney disease; K21.9 Gastro-esophageal reflux disease without esophagitis; Z66 Do not resuscitate; I25.5 Ischemic cardiomyopathy; E03.9 Hypothyroidism, unspecified; I5A Non-ischemic myocardial injury (non-traumatic)
CPT/HCPCS: 71045; 71250; 80048; 80053; 82248; 82805; 82962; 83735; 83880; 84439; 84443; 84484; 85025; 85027; 87070; 93005; 93306; 94640; 94660; 94762; 96374; 97116; 97162; 97166; 97530; 99285

== ENCOUNTER → 2024-08-01 12:29 | Outpatient (REF) | payer MEDICARE, SELFPAY ==
[2024-08-01 13:10] LABS: % Basophils 0.8 % (0-2); % Eosinophils 1.7 % (0-6); % Immature Granulocytes 0.3 % (0-0.5); % Monocytes 8.1 % (1.7-9.3); % Neutrophils 84.1 % (42.2-75.2); Absolute Basophils 0.1 10^3/uL (0-0.2); Absolute Eosinophils 0.1 10^3/uL (0-0.7); Absolute Lymphocytes 0.4 10^3/uL (1.2-3.4); Absolute Monocytes 0.6 10^3/uL (0.1-0.6); Absolute Neutrophils 6.5 10^3/uL (1.4-6.5); Hematocrit 35.5 % (39.0-52.0); Hemoglobin 10.8 g/dL (13.0-18.0); Mean Corp Hgb Conc. 30.4 g/dL (33.0-37.0); Mean Corpuscular Hgb 23.8 pg (27.0-31.0); Mean Corpuscular Volume 78.4 fL (80.0-94.0); Mean Platelet Volume 11.1 fL (7.4-10.4); Nucleated Red Blood Cells % 0 % (-); Platelet Count 259 10^3/uL (130-400); Red Blood Cell Count 4.53 10^6/uL (4.70-6.10); Red Cell Dist. Width 18.7 % (11.5-14.5); White Blood Cell Count 7.8 10^3/uL (4.8-10.8)
[2024-08-01 14:27] LABS: Glycohemoglobin (HgbA1c) 7.4 % (4.0-5.6)
[2024-08-01 16:41] LABS: TSH 0.53 uIU/ml (0.47-4.68)
[2024-08-01 16:51] LABS: ALT (SGPT) 16 U/L (0-50); AST (SGOT) 21 U/L (17-59); Albumin 4.1 g/dl (3.5-5.0); Alkaline Phosphatase 80 U/L (38-126); Blood Urea Nitrogen 25 mg/dl (9-20); Calcium 9.3 mg/dl (8.4-10.2); Carbon Dioxide 31 mmol/L (22-30); Chloride 91 mmol/L (98-107); Glucose 184 mg/dl (70-99); HDL Cholesterol 37 mg/dl; LDL Cholesterol, Calculated 91 mg/dl; Magnesium 1.8 mg/dl (1.6-2.3); Potassium 3.5 mmol/L (3.5-5.1); Sodium 136 mmol/L (135-145); Total Bilirubin 0.7 mg/dl (0.2-1.3); Total Cholesterol 164 mg/dl (50-199); Triglyceride 183 mg/dl (10-149); Very Low Density Lipoprotein 36 mg/dl (0-30); eGFR 27.83
== END ==
LOC: REG 12:29
PROVIDERS: ATTENDING PHYSICIAN Nurse Practitioner; FAMILY PHYSICIAN Internal Medicine
DX: I48.0 Paroxysmal atrial fibrillation (principal); I50.23 Acute on chronic systolic (congestive) heart failure; I25.5 Ischemic cardiomyopathy; I50.20 Unspecified systolic (congestive) heart failure; I10 Essential (primary) hypertension; E11.22 Type 2 diabetes mellitus with diabetic chronic kidney disease; E03.9 Hypothyroidism, unspecified; Z86.2 Personal history of diseases of the blood and blood-forming organs and certain disorders involving the immune mechanism; Z12.5 Encounter for screening for malignant neoplasm of prostate
CPT/HCPCS: 36415; 80053; 80061; 83036; 83735; 84443; 85025; G0103